=== PATIENT | male | born 1950 | race Caucasian/White ===

== ENCOUNTER 2019-08-15 22:26 | Observation (INO) ==
--- NOTE | 2019-08-15 22:49 | CT Scan Report ---
CT SCAN OF THE BRAIN WITHOUT IV CONTRAST CLINICAL HISTORY: Change in mental status. Memory loss. COMPARISON STUDY: No priors. TECHNIQUE: Unenhanced axial CT scan of the brain is performed from the vertex to the skull base. A d ose lowering technique was utilized adhering to the principles of ALARA. CT DOSE: 614.27 mGy.cm FINDINGS: Brain parenchyma: There is [id number] patchy subcortical and periventricular microangiopathic d isease. There is no hemorrhage, mass effect, or evidence of acute territorial ischemia by CT criteria . Carrasco-white matter differentiation is preserved. No extra-axial fluid collection is seen. Ventricles, sulci, cisterns: Normal in configuration. Intracranial vasculature: The visualized intracranial vasculature at the skull base is normal in appe arance. Calvarium: Unremarkable. Soft tissues: Calcification containing sebaceous cysts are noted in the scalp. Sinuses and mastoids: The visualized paranasal sinuses are clear. The mastoid air cells are well pneu matized. Orbits: The bony orbits are grossly intact. There are bilateral ocular lens implants. IMPRESSION: There is no hemorrhage, mass effect, or evidence of acute territorial ischemia by CT airam wong. ACT 112: Negative or not required by law. Electronically signed by: Farrukh Taylor M.D. 08/15/2019 10:48 PM
[2019-08-15] MEDS ORDERED: HydrALAZINE HCL 20 MG/ML VIAL IV STA (22:55)
[2019-08-15 23:08] LABS: iSTAT Creatinine 1.2 mg/dl (0.6-1.3); iSTAT Hemoglobin 15.6 g/dl (14.0-18.0); iSTAT Ionized Calcium 1.22 mmol/l (1.12-1.32); iSTAT Potassium 3.9 mEq/L (3.3-5.0)
--- NOTE | 2019-08-15 23:21 | Emergency Department Note ---
Entered by Cherie Osorio acting as a scribe for Farrukh Martin MD History of Present Illness General Chief complaint: Stroke Alert Stated complaint: MEMORY PROBLEMS Time Seen by Provider: 08/15/19 22:50 Source: patient, family () and other (ED nurses) History of Present Illness Onset (ago): hour(s) ( noticed sx at 8:30PM today) Location: head (stroke-like sx) Pain Consistency: + constant Maximum Pain Intensity: 0 Associated symptoms: + denies other symptoms (facial droop, speech issues, dizziness, recent cold sx or sickness), + diaphoresis (reported by ED nurses after CT today (head and back)) and + other (memory loss); no headaches and no weakness The patient is a 69 year old male with a history of HTN who presents to the Emergency Room with complaints of a possible stroke. The patient's reports that she noticed that the patient had loss of memory around 8:30PM (about 3 hours ago) and she states that he could not remember activities that he performed earlier in the day.. states that he was acting at baseline when he woke up this am--no weakness throughout the day, no facial droop, no speech issues, no dizziness. He does not have a history of stroke and never experienced similar symptoms in the past. The patient reports that he did not hit his head today or fall. He denies a current headache as well as recent cold symptoms or sickness. He states that he feels fine now. ED nurse also reports that the patient appeared to be more diaphoretic (face and back) after CT than when he arrived. The patient and his offer no further concerns at this time. Home Medications Home Medications Medication Instructions Recorded Confirmed Type lisinopril 20 mg PO DAILY 08/15/19 08/15/19 History Allergies Allergy/AdvReac Type Severity Reaction Status Date / Time No Known Allergies Allergy Unverified 08/15/19 22:55 Past Med/Surg History Medical History Hypertension Surgical History No pertinent past surgical history Social History Preferred Language: Ukrainian Feels Safe at Home: Yes Smoking Status: Former smoker Review of Systems See HPI for pertinent positives & negatives. and A total of 10 systems reviewed and were otherwise negative Physical Exam Vital Signs Vital Signs - 24 hr 08/15/19 22:32 08/15/19 22:52 08/15/19 23:00 Temperature 36.5 C 36.8 C Temperature Source Oral Oral Pulse Rate 82 81 Pulse Rate [Apical] 84 Pulse Rate from SpO2 Sensor 81 Pulse Rhythm Regular Pulse Rhythm [Apical] Regular Pulse Strength Normal Respiratory Rate 16 16 20 Respiratory Effort / Characteristics Non-Labored Non-Labored Spontaneous Respiratory Depth Normal Normal Respiratory Pattern Regular Regular Blood Pressure 196/100 H 146/95 H Blood Pressure [Left Arm] 214/114 H Blood Pressure Mean 132 112 Blood Pressure Mean [Left Arm] 147 Blood Pressure Position Sitting Pulse Oximetry 96 98 96 Oxygen Delivery Method Room Air Room Air Sepsis Recent Fever Within 48 Hours No Sepsis Action Taken by Nursing No Action Required 08/15/19 23:18 08/15/19 23:34 08/15/19 23:50 Temperature Temperature Source Pulse Rate Pulse Rate [Apical] 94 H 85 81 Pulse Rate from SpO2 Sensor Pulse Rhythm Pulse Rhythm [Apical] Regular Regular Regular Pulse Strength Respiratory Rate 16 16 18 Respiratory Effort / Characteristics Non-Labored Spontaneous Non-Labored Spontaneous Non-Labored Spontaneous Respiratory Depth Normal Normal Normal Respiratory Pattern Regular Regular Blood Pressure Blood Pressure [Left Arm] 153/107 H 144/88 H 158/85 H Blood Pressure Mean Blood Pressure Mean [Left Arm] 122 106 109 Blood Pressure Position Pulse Oximetry 98 100 100 Oxygen Delivery Method Room Air Room Air Room Air Sepsis Recent Fever Within 48 Hours Sepsis Action Taken by Nursing 08/16/19 00:04 08/16/19 00:28 08/16/19 00:40 Temperature Temperature Source Pulse Rate Pulse Rate [Apical] 81 85 84 Pulse Rate from SpO2 Sensor Pulse Rhythm Pulse Rhythm [Apical] Regular Regular Regular Pulse Strength Respiratory Rate 20 20 20 Respiratory Effort / Characteristics Non-Labored Spontaneous Non-Labored Spontaneous Non-Labored Spontaneous Respiratory Depth Normal Normal Normal Respiratory Pattern Regular Regular Agonal Blood Pressure Blood Pressure [Left Arm] 154/94 H 161/101 H 139/84 Blood Pressure Mean Blood Pressure Mean [Left Arm] 114 121 102 Blood Pressure Position Pulse Oximetry 97 97 96 Oxygen Delivery Method Room Air Room Air Room Air Sepsis Recent Fever Within 48 Hours Sepsis Action Taken by Nursing GENERAL: Patient is in no acute distress. HEENT: No acute trauma, normocephalic atraumatic, mucous membranes moist, no nasal congestion, no scleral icterus. NECK: No stridor, no adenopathy, no meningismus, trachea is midline. LUNGS: Clear to auscultation bilaterally, no wheeze, no rhonchi, breath sounds equal. HEART: Without murmurs gallops or rubs, regular rate and rhythm. ABDOMEN: Soft, nontender, bowel sounds positive, no hernias, no peritonitis. EXTREMITIES: No cyanosis or edema, full range of motion of all the joints without pain or difficulty, no signs for acute trauma. NEUROLOGIC: Awake and alert, no acute motor or sensory deficits, no focal weakness. No speech slur, no protonated drift, no cerebellar dysfunction. Patient seems to have no memory of the earlier part of today. SKIN: No rash, no jaundice, mild diaphoresis. Course Course 2244: Past medical records reviewed. The patient was evaluated in room A01. A complete history and physical exam was performed. 2253: I spoke to Dr. Loaiza [facility]. He will sign in on the case. 2257: I checked on the patient and updated him and his on the plan of care and that Dr. Loaiza is signing in. 2324: I re-checked the patient. Dr. Loaiza is finishing up his assessment and speaking to the patient and his about TGA. 2338: I spoke to Dr. Loaiza, he states that this is likely not a CVA but more likely TGA. No TPA at this time. He recommends a hospital stay, MRI, EEG, and dose of oral aspirin. 2342: The patient will be admitted Dr. Peñaloza, [facility] Hospitalist. The patient verbally expressed understanding and agreement of the treatment plan. The patient will be evaluated for further treatment. Administered Medications Discontinued Medications Aspirin (Aspirin) 324 mg PO NOW STA Stop: 08/15/19 23:43 Last Admin: 08/15/19 23:45 Dose: 324 mg Documented by: [id number] Hydralazine HCl (Hydralazine Hcl) 10 mg IV NOW STA Stop: 08/15/19 22:56 Last Admin: 08/15/19 22:57 Dose: 10 mg Documented by: [id number] Lisinopril (Zestril) Confirm Administered Dose 10 mg PO .[employer] ONE Stop: 08/16/19 00:12 Last Admin: 08/16/19 00:31 Dose: Not Given Documented by: [id number] Critical Care Time Critical Care Time: Yes Total Critical Care Time: 37 I have personally spent 37 minutes of critical care time in the direct management of this patient. This includes bedside care, interpretation of diagnostic studies, and testing, discussion with consultants, patient, and family members, and other required patient management activities. This 37 minutes is in excess of all separately billable procedures. Medical Decision Making Differential Diagnosis Differential diagnosis includes but is not limited to stroke, TGA, hypoglycemia, electrolyte imbalance, head trauma, dysrhythmia, DC, renal failure, drug or alcohol abuse. Medical Records Attestation: I reviewed the patient's medical records. Home Medications Current Medication List: was personally reviewed by me Laboratory Data Attestation: I reviewed the patient's lab results. Result diagrams: 08/15/19 22:51 08/15/19 22:51 Lab Results 08/15/19 08/15/19 08/15/19 Range/Units 22:48 22:51 22:51 WBC 6.57 (4.8-10.8) K/uL RBC 5.88 (4.7-6.1) M/uL Hgb 17.1 (14.0-18.0) g/dL POC Hgb (14.0-18.0) g/dl Hct 48.7 (42-52) % POC Hct (42-52) % MCV 82.8 (80-100) fL MCH 29.1 (25-34) pg MCHC 35.1 (32-36) g/dL RDW Std Deviation 39.4 (36.4-46.3) fL RDW Coeff of Reggie 13.0 (11.5-14.5) % Plt Count 153 (130-400) K/uL MPV 10.3 (7.4-10.4) fL Immature Gran % (Auto) 0.2 % Neut % (Auto) 49.2 % Lymph % (Auto) 40.5 % [place] % (Auto) 7.5 % Eos % (Auto) 2.4 % Baso % (Auto) 0.2 % Immature Gran # (Auto) 0.01 (0.00-0.02) K/uL Neut # (Auto) 3.24 (1.4-6.5) K/uL Lymph # (Auto) 2.66 (1.2-3.4) K/uL [place] # (Auto) 0.49 (0.11-0.59) K/uL Eos # (Auto) 0.16 (0-0.5) K/uL Baso # (Auto) 0.01 (0-0.2) K/uL PT 10.7 (9.0-12.0) Seconds INR 1.0 (0.9-1.1) APTT 24.8 (21.0-31.0) Seconds PTT Ratio 0.9 POC Sodium (135-144) mEq/L Sodium (136-145) mmol/L POC Potassium (3.3-5.0) mEq/L Potassium (3.5-5.1) mmol/L POC Chloride (101-112) mEq/L Chloride (98-107) mmol/L Carbon Dioxide (21-32) mmol/L POC Total CO2 (24-31) mEq/l Anion Gap (3-11) POC Anion Gap (16-25) mmol/L POC BUN (7-18) mg/dl BUN (7-18) mg/dl Creatinine (0.6-1.4) mg/dl POC Creatinine (0.6-1.3) mg/dl Est Cr Clr Drug Dosing ml/min Est GFR ( Amer) Est GFR (Non-Af Amer) BUN/Creatinine Ratio (10-20) Glucose (70-99) mg/dl POC Glucose 120 H (70-99) POC Glucose (other) (70-99) mg/dl Calcium (8.5-10.1) mg/dl POC Ioniz Calcium Shayna (1.12-1.32) mmol/l Magnesium (1.8-2.4) mg/dl Total Bilirubin (0.2-1) mg/dl AST (15-37) U/L ALT (12-78) U/L Alkaline Phosphatase (45-117) U/L Troponin I (0-0.045) ng/ml Total Protein (6.4-8.2) gm/dl Albumin (3.4-5.0) gm/dl Globulin (2.5-4.0) gm/dl Albumin/Globulin Ratio (0.9-2) TSH (0.300-4.500) uIu/ml Free T4 (0.8-1.6) ng/dl Urine Color Urine Appearance (Clear) Urine pH (4.5-7.5) Ur Specific [place] (1.000-1.030) Urine Protein (Negative) Urine Glucose (UA) (Negative) Urine Ketones (Negative) Urine Blood (Negative) Urine Nitrite (Negative) Urine Bilirubin (Negative) Urine Urobilinogen (Negative) Ur Leukocyte Esterase (Negative) Urine WBC (Auto) (0-5) /hpf Urine RBC (Auto) (0-4) /hpf U Hyaline Cast (Auto) (0-5) /lpf U Epithel Cells (Auto) (0-5) /lpf Urine Bacteria (Auto) (Negative) 08/15/19 08/15/19 08/16/19 Range/Units 22:51 22:54 00:40 WBC (4.8-10.8) K/uL RBC (4.7-6.1) M/uL Hgb (14.0-18.0) g/dL POC Hgb 15.6 (14.0-18.0) g/dl Hct (42-52) % POC Hct 46 (42-52) % MCV (80-100) fL MCH (25-34) pg MCHC (32-36) g/dL RDW Std Deviation (36.4-46.3) fL RDW Coeff of Reggie (11.5-14.5) % Plt Count (130-400) K/uL MPV (7.4-10.4) fL Immature Gran % (Auto) % Neut % (Auto) % Lymph % (Auto) % [place] % (Auto) % Eos % (Auto) % Baso % (Auto) % Immature Gran # (Auto) (0.00-0.02) K/uL Neut # (Auto) (1.4-6.5) K/uL Lymph # (Auto) (1.2-3.4) K/uL [place] # (Auto) (0.11-0.59) K/uL Eos # (Auto) (0-0.5) K/uL Baso # (Auto) (0-0.2) K/uL PT (9.0-12.0) Seconds INR (0.9-1.1) APTT (21.0-31.0) Seconds PTT Ratio POC Sodium 139 (135-144) mEq/L Sodium 137 (136-145) mmol/L POC Potassium 3.9 (3.3-5.0) mEq/L Potassium 3.8 (3.5-5.1) mmol/L POC Chloride 104 (101-112) mEq/L Chloride 106 (98-107) mmol/L Carbon Dioxide 27 (21-32) mmol/L POC Total CO2 25 (24-31) mEq/l Anion Gap 4.0 (3-11) POC Anion Gap 15.0 L (16-25) mmol/L POC BUN 19 H (7-18) mg/dl BUN 17 (7-18) mg/dl Creatinine 1.29 (0.6-1.4) mg/dl POC Creatinine 1.2 (0.6-1.3) mg/dl Est Cr Clr Drug Dosing 82.2 ml/min Est GFR ( Amer) 66.1 Est GFR (Non-Af Amer) 57.0 BUN/Creatinine Ratio 13.6 (10-20) Glucose 117 H (70-99) mg/dl POC Glucose (70-99) POC Glucose (other) 122 H (70-99) mg/dl Calcium 9.3 (8.5-10.1) mg/dl POC Ioniz Calcium Shayna 1.22 (1.12-1.32) mmol/l Magnesium 1.9 (1.8-2.4) mg/dl Total Bilirubin 0.5 (0.2-1) mg/dl AST 34 (15-37) U/L ALT 49 (12-78) U/L Alkaline Phosphatase 78 (45-117) U/L Troponin I < 0.015 (0-0.045) ng/ml Total Protein 8.5 H (6.4-8.2) gm/dl Albumin 4.4 (3.4-5.0) gm/dl Globulin 4.1 H (2.5-4.0) gm/dl Albumin/Globulin Ratio 1.1 (0.9-2) TSH 9.330 H (0.300-4.500) uIu/ml Free T4 0.96 (0.8-1.6) ng/dl Urine Color Yellow Urine Appearance Clear (Clear) Urine pH 5.5 (4.5-7.5) Ur Specific [place] 1.021 (1.000-1.030) Urine Protein 1+ H (Negative) Urine Glucose (UA) Negative (Negative) Urine Ketones Negative (Negative) Urine Blood Negative (Negative) Urine Nitrite Negative (Negative) Urine Bilirubin Negative (Negative) Urine Urobilinogen Negative (Negative) Ur Leukocyte Esterase Negative (Negative) Urine WBC (Auto) 0 (0-5) /hpf Urine RBC (Auto) 0-4 (0-4) /hpf U Hyaline Cast (Auto) 0 (0-5) /lpf U Epithel Cells (Auto) 0-5 (0-5) /lpf Urine Bacteria (Auto) Negative (Negative) Imaging Data Radiologist's Impression: Radiology results as stated below per my review and the radiologist's interpretation: CT SCAN OF THE BRAIN WITHOUT IV CONTRAST CLINICAL HISTORY: Change in mental status. Memory loss. COMPARISON STUDY: No priors. TECHNIQUE: Unenhanced axial CT scan of the brain is performed from the vertex to the skull base. A dose lowering technique was utilized adhering to the principles of ALARA. CT DOSE: 614.27 mGy.cm FINDINGS: Brain parenchyma: There is [id number] patchy subcortical and periventricular microangiopathic disease. There is no hemorrhage, mass effect, or evidence of acute territorial ischemia by CT criteria. Carrasco-white matter differentiation is preserved. No extra-axial fluid collection is seen. Ventricles, sulci, cisterns: Normal in configuration. Intracranial vasculature: The visualized intracranial vasculature at the skull base is normal in appearance. Calvarium: Unremarkable. Soft tissues: Calcification containing sebaceous cysts are noted in the scalp. Sinuses and mastoids: The visualized paranasal sinuses are clear. The mastoid air cells are well pneumatized. Orbits: The bony orbits are grossly intact. There are bilateral ocular lens implants. IMPRESSION: There is no hemorrhage, mass effect, or evidence of acute territorial ischemia by CT criteria. ACT 112: Negative or not required by law. Electronically signed by: Farrukh Taylor M.D. 08/15/2019 10:48 PM ECG Data Attestation: I personally reviewed and interpreted this ECG as follows: Indication: + other (stroke alert) Rate (beats per minute): 80 Rhythm: + normal sinus ECG ST segments: no ST elevation ECG Findings: + Other (QTc is 433); no PVCs Blood Pressure Blood Pressure Findings: Elevated blood pressure Blood Pressure Disposition: further management by hospitalist MDM Narrative There is no leukocytosis or concerning anemia. No coagulopathy. No concerning electrolyte abnormality or kidney failure. No liver enzyme elevation. EKG shows a normal sinus rhythm, no acute ischemia. Cardiac enzyme testing x1 is not consistent with acute cardiac injury. Urinalysis did not show evidence for infection. Brain CT shows no acute bleed or mass-effect. On exam, the patient had no real memory of today's events. He had no focal neurologic findings, no speech slur. He had no facial droop. The patient was aggressively managed given his complaints, a stroke alert was called. I did speak with the [place] neurologist after my history and exam. The patient's blood pressure was quite high. He was given IV hydralazine with a nice response to his blood pressure. The patient was assessed by the on-call [place] neurologist via telemedicine. tPA was not felt warranted. The patient was felt likely to be suffering from a hypertensive emergency versus transient global amnesia. The risk of TPA for this presentation was felt too great. I talked the patient, I talked to the patient's . They are aware of all the findings. Hospitalization is warranted for further work-up. MRI, EEG were r ecommended by the [place] neurologist. The patient was given oral aspirin as he had passed his dysphagia screen. The aspirin was felt to be stroke protective. The patient will be hospitalized for further work-up and care. I did speak with case management. The on-call hospitalist was consulted. Impression & Plan Stroke-like symptom, Memory loss, Hypertension, uncontrolled, TGA (transient global amnesia) Discharge Plan Visit Data Chief Complaint: Stroke Alert Stated Complaint: MEMORY PROBLEMS Other Complaint: Confusion ED Provider: Farrukh Martin Discharge Problem: Stroke-like symptom, Memory loss, Hypertension, uncontrolled, TGA (transient global amnesia) Patient Disposition: Being Evaluated by Hospitalist Forms Stand Alone Forms: My [facility] Prescriptions Prescriptions: No Action lisinopril 20 mg Tablet 20 mg PO DAILY RF: 0 Referrals Referrals: Gera Pastor [Primary Care Provider] - The juliusiblindsay's documentation has been prepared under my direction and personally reviewed by me in its entirety. I confirm that the note above accurately reflects all work, treatment, procedures, and medical decision making performed by me.
[2019-08-15 23:23] LABS: Basophils # (auto) 0.01 K/uL (0-0.2); Basophils % (auto) 0.2 %; Eosinophils # (auto) 0.16 K/uL (0-0.5); Eosinophils % (auto) 2.4 %; Hematocrit (blood only) 48.7 % (42-52); Hemoglobin 17.1 g/dL (14.0-18.0); Immature Granulocytes # (auto) 0.01 K/uL (0.00-0.02); Immature Granulocytes % (auto) 0.2 %; Lymphocytes # (auto) 2.66 K/uL (1.2-3.4); Lymphocytes % (auto) 40.5 %; Mean Corpuscular Hemoglobin 29.1 pg (25-34); Mean Corpuscular Hgb Conc 35.1 g/dL (32-36); Mean Corpuscular Volume 82.8 fL (80-100); Mean Platelet Volume 10.3 fL (7.4-10.4); Monocytes # (auto) 0.49 K/uL (0.11-0.59); Monocytes % (auto) 7.5 %; Neutrophils # (auto) 3.24 K/uL (1.4-6.5); Neutrophils % (auto) 49.2 %; Platelet Count 153 K/uL (130-400); RDW Standard Deviation 39.4 fL (36.4-46.3); Red Blood Count 5.88 M/uL (4.7-6.1); White Blood Count 6.57 K/uL (4.8-10.8)
[2019-08-15 23:35] LABS: Alanine Aminotransferase 49 U/L (12-78); Albumin Level 4.4 gm/dl (3.4-5.0); Aspartate Aminotransferase 34 U/L (15-37); BUN Creatinine Ratio 13.6 (10-20); Blood Urea Nitrogen 17 mg/dl (7-18); Calcium 9.3 mg/dl (8.5-10.1); Carbon Dioxide 27 mmol/L (21-32); Chloride 106 mmol/L (98-107); Creatinine Clr Calc Pharmacy 82.2 ml/min; Est GFR (African American) 66.1; Glucose 117 mg/dl (70-99); Magnesium 1.9 mg/dl (1.8-2.4); Partial Thromboplastin Ratio 0.9; Partial Thromboplastin Time 24.8 Seconds (21.0-31.0); Potassium 3.8 mmol/L (3.5-5.1); Prothrombin Time 10.7 Seconds (9.0-12.0); Sodium 137 mmol/L (136-145)
[2019-08-15 23:40] LABS: Albumin Globulin Ratio 1.1 (0.9-2); Alkaline Phosphatase 78 U/L (45-117); Bilirubin,Total 0.5 mg/dl (0.2-1); Globulin 4.1 gm/dl (2.5-4.0); Total Protein 8.5 gm/dl (6.4-8.2); Troponin I < 0.015 ng/ml (0-0.045)
[2019-08-15] MEDS ORDERED: ASPIRIN CHEW 324 MG PO STA (23:42)
[2019-08-15] MEDS ORDERED: lisinopriL 10 MG TAB PO ONE (23:53)
[2019-08-16] MEDS: lisinopriL 5 MG TAB PO ONE ×2 (00:12→00:31)
[2019-08-16] MEDS ORDERED: lisinopriL 10 MG TAB PO STA (00:28)
--- NOTE | 2019-08-16 00:29 | History & Physical Report ---
Date of Service August 16, 2019 Assessment & Plan (1) TGA (transient global amnesia): Memory of recent events somewhat improving at time of exam Rule out TIA, atypical seizures HTN, elevated Unknown baseline control Rule out DARCY Hyperglycemia rule out DM Leg cramps rule out DVT OBS Medical telemetry Neurochecks MRI/MRA brain, EEG for work-up of transient global amnesia as per [facility] teleneurologist recommendation Neurology consult RE transient global amnesia Aspirin for stroke prevention until stroke ruled out titrate BP medication to optimize BP control as per [facility] neurologist recommendation, add Norvasc if still uncontrolled Check hemoglobin A1c LE venous ultrasound ro DVT DVT prophylaxis. Lovenox subcu Full code Patient's requesting updates from providers. Ms. Sarahi Silva, contact #[phone]. History of Present Illness Chief Complaint: Cannot remember things Primary Care Provider: Gera Pastor History obtained from patient, family, and records. Patient is a fair historian. Medical history significant for hypertension, past tobacco use. Patient was at a nighttime gathering with friends when his noticed memory impairment. Patient could not remember details regarding recent [employer] gift to a grandson, recent visit by family members for the holidays. No headache, no chest pain, no S OB. No prior episodes. No unusual stress at home. No witnessed seizures, tongue biting episodes. No prior episodes. Patient does not take his blood pressure at home. Patient's asked witnessed apneic episodes during sleep. Stroke alert called upon arrival at the ER. 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 Allergies Allergy/AdvReac Type Severity Reaction Status Date / Time No Known Allergies Allergy Unverified 08/15/19 22:55 Home Medications Home Medications Medication Instructions Recorded Confirmed Type lisinopril 20 mg PO DAILY 08/15/19 08/15/19 History Past Med/Surg History Medical History Hypertension Surgical History No pertinent past surgical history Social History Preferred Language: Surinamese Communication Ability: Effective Skip 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 Required: No Beliefs That Will Affect Care: None Current Living Situation: Spouse Other Information That Helps Us Care for You: No Feels Safe at Home: Yes Safety Concerns: Feels Safe At This Time Smoking Status: Never smoker Hx Alcohol Use: Yes Alcohol type: beer Hx Substance Use: No Review of Systems Review of Systems: As per HPI, all 10 systems reviewed, bilateral leg cramps, all other ROS negative Physical Exam Physical Exam: GENERAL: Comfortable, slightly anxious, pleasant, obese, no respiratory distress SKIN: Normal color, warm HEENT: Partial alopecia, [place] palpebral conjunctivae, no ptosis, dry buccal mucosa NECK : Supple, short neck, no tenderness CHEST : CTA, no tenderness HEART : RRR, no obvious murmurs ABDOMEN: Some distention, nontender EXTREMITIES : Minimal LE swelling, no LE tenderness, no other conspicuous deformities noted NEUROLOGIC : Coherent, no facial asymmetry, no other gross focality Results & Data Vital Signs (Past 12 Hours) Vital Signs Temp Pulse Pulse Resp BP BP Pulse Ox 08/16/19 00:28 85 20 161/101 H 97 08/16/19 00:04 81 20 154/94 H 97 08/15/19 23:50 81 18 158/85 H 100 08/15/19 23:34 85 16 144/88 H 100 08/15/19 23:18 94 H 16 153/107 H 98 08/15/19 23:00 81 20 146/95 H 96 08/15/19 22:52 36.8 C 84 16 214/114 H 98 08/15/19 22:32 36.5 C 82 16 196/100 H 96 Laboratory Results Laboratory Results WBC 6.57 K/uL (4.8-10.8) 08/15/19 22:51 RBC 5.88 M/uL (4.7-6.1) 08/15/19 22:51 Hgb 17.1 g/dL (14.0-18.0) 08/15/19 22:51 POC Hgb 15.6 g/dl (14.0-18.0) 08/15/19 22:54 Hct 48.7 % (42-52) 08/15/19 22:51 POC Hct 46 % (42-52) 08/15/19 22:54 MCV 82.8 fL (80-100) 08/15/19 22:51 MCH 29.1 pg (25-34) 08/15/19 22:51 MCHC 35.1 g/dL (32-36) 08/15/19 22:51 RDW Std Deviation 39.4 fL (36.4-46.3) 08/15/19 22:51 RDW Coeff of Reggie 13.0 % (11.5-14.5) 08/15/19 22:51 Plt Count 153 K/uL (130-400) 08/15/19 22:51 MPV 10.3 fL (7.4-10.4) 08/15/19 22:51 Immature Gran % (Auto) 0.2 % 08/15/19 22:51 Neut % (Auto) 49.2 % 08/15/19 22:51 Lymph % (Auto) 40.5 % 08/15/19 22:51 [place] % (Auto) 7.5 % 08/15/19 22:51 Eos % (Auto) 2.4 % 08/15/19 22:51 Baso % (Auto) 0.2 % 08/15/19 22:51 Immature Gran # (Auto) 0.01 K/uL (0.00-0.02) 08/15/19 22:51 Neut # (Auto) 3.24 K/uL (1.4-6.5) 08/15/19 22:51 Lymph # (Auto) 2.66 K/uL (1.2-3.4) 08/15/19 22:51 [place] # (Auto) 0.49 K/uL (0.11-0.59) 08/15/19 22:51 Eos # (Auto) 0.16 K/uL (0-0.5) 08/15/19 22:51 Baso # (Auto) 0.01 K/uL (0-0.2) 08/15/19 22:51 PT 10.7 Seconds (9.0-12.0) 08/15/19 22:51 INR 1.0 (0.9-1.1) 08/15/19 22:51 APTT 24.8 Seconds (21.0-31.0) 08/15/19 22:51 PTT Ratio 0.9 08/15/19 22:51 POC Sodium 139 mEq/L (135-144) 08/15/19 22:54 Sodium 137 mmol/L (136-145) 08/15/19 22:51 POC Potassium 3.9 mEq/L (3.3-5.0) 08/15/19 22:54 Potassium 3.8 mmol/L (3.5-5.1) 08/15/19 22:51 POC Chloride 104 mEq/L (101-112) 08/15/19 22:54 Chloride 106 mmol/L (98-107) 08/15/19 22:51 Carbon Dioxide 27 mmol/L (21-32) 08/15/19 22:51 POC Total CO2 25 mEq/l (24-31) 08/15/19 22:54 Anion Gap 4.0 (3-11) 08/15/19 22:51 POC Anion Gap 15.0 mmol/L (16-25) L 08/15/19 22:54 POC BUN 19 mg/dl (7-18) H 08/15/19 22:54 BUN 17 mg/dl (7-18) 08/15/19 22:51 Creatinine 1.29 mg/dl (0.6-1.4) 08/15/19 22:51 POC Creatinine 1.2 mg/dl (0.6-1.3) 08/15/19 22:54 Est Cr Clr Drug Dosing 82.2 ml/min 08/15/19 22:51 Est GFR ( Amer) 66.1 08/15/19 22:51 Est GFR (Non-Af Amer) 57.0 08/15/19 22:51 BUN/Creatinine Ratio 13.6 (10-20) 08/15/19 22:51 Glucose 117 mg/dl (70-99) H 08/15/19 22:51 POC Glucose 120 (70-99) H 08/15/19 22:48 POC Glucose (other) 122 mg/dl (70-99) H 08/15/19 22:54 Calcium 9.3 mg/dl (8.5-10.1) 08/15/19 22:51 POC Ioniz Calcium Shayna 1.22 mmol/l (1.12-1.32) 08/15/19 22:54 Magnesium 1.9 mg/dl (1.8-2.4) 08/15/19 22:51 Total Bilirubin 0.5 mg/dl (0.2-1) 08/15/19 22:51 AST 34 U/L (15-37) 08/15/19 22:51 ALT 49 U/L (12-78) 08/15/19 22:51 Alkaline Phosphatase 78 U/L (45-117) 08/15/19 22:51 Troponin I < 0.015 ng/ml (0-0.045) 08/15/19 22:51 Total Protein 8.5 gm/dl (6.4-8.2) H 08/15/19 22:51 Albumin 4.4 gm/dl (3.4-5.0) 08/15/19 22:51 Globulin 4.1 gm/dl (2.5-4.0) H 08/15/19 22:51 Albumin/Globulin Ratio 1.1 (0.9-2) 08/15/19 22:51 TSH 9.330 uIu/ml (0.300-4.500) H 08/15/19 22:[address] head: There is no hemorrhage, mass effect, or evidence of acute territorial ischemia by CT criteria. EKG as per my interpretation:Rate 80, NSR, normal axis, no ischemia
[2019-08-16 00:30] LABS: T4 Free Thyroxine 0.96 ng/dl (0.8-1.6)
[2019-08-16 00:52] LABS: Appearance Urine Clear (Clear); Bacteria Urine Automated Negative (Negative); Bilirubin Urine Negative (Negative); Blood Urine Negative (Negative); Cast Urine Automated 0 /lpf (0-5); Color Urine Yellow; Epithelial Cell Urine Auto 0-5 /lpf (0-5); Glucose Urine UA Negative (Negative); Ketones Urine Negative (Negative); Leukocyte Esterase Urine Negative (Negative); Nitrite Urine Negative (Negative); Protein Urine 1+ (Negative); RBC Urine Automated 0-4 /hpf (0-4); Specific Gravity Urine 1.021 (1.000-1.030); Urobilinogen Urine Negative (Negative); WBC Urine Automated 0 /hpf (0-5); pH Urine 5.5 (4.5-7.5)
[2019-08-16 01:07] LABS: Amphetamines+Metham, Urine Neg (Neg); Barbiturates, Urine Neg (Neg); Benzodiazepine, Urine Neg (Neg); Cocaine, Urine Neg (Neg); MDMA (Ecstacy), Urine Neg (Neg); Methadone, Urine Neg (Neg); Opiate, Urine Neg (Neg); Phencyclidine, Urine Neg (Neg)
[2019-08-16] MEDS ORDERED: ACETAMINOPHEN 325 MG TAB PO PRN (01:30)
[2019-08-16] MEDS ORDERED: NITROGLYCERIN SL 0.4 MG/TAB TAB SL PRN (01:30)
[2019-08-16] MEDS ORDERED: OXYCODONE HCL IR 5 MG TAB (IMMEDIATE RELEASE) PO PRN (01:30)
[2019-08-16] MEDS ORDERED: PROMETHAZINE HCL 12.5 MG in SODIUM CHLORIDE 0.9% 50 ML IV PRN (01:30)
[2019-08-16] MEDS ORDERED: LACTATED RINGER'S 1,000 ML IV ONE (01:30)
[2019-08-16 02:17] LABS: Lyme Ab IgG w/WB Rflx Negative (Negative); Lyme Ab IgM w/WB Rflx Negative (Negative)
[2019-08-16 06:07] LABS: Estimated Average Glucose 140 mg/dl; Hemoglobin A1C 6.5 % (4.5-5.6)
[2019-08-16 06:18] LABS: Basophils # (auto) 0.02 K/uL (0-0.2); Basophils % (auto) 0.3 %; Eosinophils # (auto) 0.09 K/uL (0-0.5); Eosinophils % (auto) 1.2 %; Hemoglobin 15.8 g/dL (14.0-18.0); Immature Granulocytes # (auto) 0.01 K/uL (0.00-0.02); Immature Granulocytes % (auto) 0.1 %; Lymphocytes % (auto) 28.6 %; Mean Corpuscular Hemoglobin 29.2 pg (25-34); Mean Corpuscular Hgb Conc 35.1 g/dL (32-36); Monocytes # (auto) 0.62 K/uL (0.11-0.59); Monocytes % (auto) 8.1 %; Neutrophils # (auto) 4.76 K/uL (1.4-6.5); Neutrophils % (auto) 61.7 %; Platelet Count 152 K/uL (130-400); RDW Coefficient of Variation 13.2 % (11.5-14.5); RDW Standard Deviation 39.2 fL (36.4-46.3); Red Blood Count 5.42 M/uL (4.7-6.1)
--- NOTE | 2019-08-16 06:34 | Ultrasound Report ---
BILATERAL LOWER EXTREMITY VENOUS DOPPLER HISTORY: Acute bilateral lower extremity pain leg cramps COMPARISON STUDY: None. FINDINGS: There is normal compressibility, flow, and augmentation within the bilateral lower extremit y deep venous systems. IMPRESSION: No DVT within the right or left lower extremity. ACT 112: Negative or not required by law. Electronically signed by: Wilder Givens M.D. 08/16/2019 6:32 AM
[2019-08-16 06:46] LABS: BUN Creatinine Ratio 16.2 (10-20); Calcium 9.1 mg/dl (8.5-10.1); Creatinine Clr Calc Pharmacy 108.6 ml/min; Est GFR (African American) 93.2; Est GFR (Non-African American) 80.5; Potassium 3.7 mmol/L (3.5-5.1)
--- NOTE | 2019-08-16 07:11 | Magnetic Resonance Report ---
MR angio head wo con HISTORY: 69 years-old Male transient amnesia acutely altered mental status COMPARISON: MRI brain of same day, CT head 08/15/2019 TECHNIQUE: MRA of the head was obtained without the use of IV contrast utilizing 3-D [id number] equencing with MIP reformats. All measurements were obtained according to NASCET criteria. FINDINGS: The imaged bilateral internal carotid arteries appear patent and unremarkable. Bilateral middle and a nterior cerebral arteries and anterior communicating artery appear normal. Diminished flow related si gnal of the visualized left vertebral artery, likely developmental. The right vertebral artery, basil ar and posterior cerebral arteries appear normal and patent. origin of the right posterior cere bral artery. There is no aneurysm, dissection, high-grade stenosis or proximal branch occlusion ident ified. Nonspecific ill-defined increased signal noted within the cerebellum surrounding the fourth ve ntricle, possibly on a artifactual basis. A 1 mm vascular pedicle is noted involving the left P1 segm ent on image 121 series 8. IMPRESSION: Unremarkable MRA without aneurysm, dissection, high-grade stenosis or proximal branch occ lusion identified. ACT 112: Negative or not required by law. The above report was generated using voice recognition software. It may contain grammatical, syntax o r spelling errors. Electronically signed by: Wilder Givens M.D. 08/16/2019 7:09 AM
--- NOTE | 2019-08-16 07:13 | Magnetic Resonance Report ---
MRI OF THE BRAIN WITHOUT CONTRAST CLINICAL HISTORY: transient amnesia COMPARISON STUDY: Head CT August 15, 2019. TECHNIQUE: Utilizing a 1.5 Ruthann magnet and dedicated coil, multiplanar, multiecho imaging of the bra in was performed without IV contrast. FINDINGS: There are no foci of restricted diffusion to suggest acute infarct. No acute intracranial h emorrhage, midline shift or mass effect is present. Brain volume is normal for age. Numerous white ma tter T2 hyperintense foci suggest moderate small vessel disease. No intracranial masses identified on this unenhanced examination. The ventricular system is normal. The basilar cisterns are patent. Ther e are no extra-axial collections. Flow-voids for the major intracranial vessels are present. Multiple scalp lesions likely reflect sebaceous cysts. Calvarial signal is normal. IMPRESSION: 1. No acute intracranial findings. 2. Numerous white matter T2 hyperintense foci suggestive of small vessel disease. ACT 112: Negative or not required by law. Electronically signed by: Karl Nicolas M.D. 08/16/2019 7:12 AM
[2019-08-16] MEDS ORDERED: ENOXAPARIN INJ 40 MG/0.4 ML SYR SQ SCH (09:00)
[2019-08-16] MEDS ORDERED: ASPIRIN 81 MG ECTAB PO SCH (09:00)
[2019-08-16] MEDS ORDERED: ATORVASTATIN 20 MG TAB PO SCH (14:00)
--- NOTE | 2019-08-16 14:26 | Neurology Consultation ---
Date of Consultation August 16, 2019 Assessment & Plan (1) TGA (transient global amnesia): 1. EEG preliminary read- normal 2. MRI no acute finding 3. MRA- no acute abnormalities- needs carotid doppler -ordered 4. PT/OT for discharge needs appears to be none 5. add aspirin 81 mg to medications 6. needs to establish with PCP for follow up on medical management 7. healthy lifestyle discussed 8. optimize HTN , DM, HLD LDL <70 return to neurology if PCP feels there is a need in the future. (2) Hypertension, uncontrolled: follow up with PCP for further medical management (3) Memory loss: 1. as above (4) Stroke-like symptom: Supervising Physician Co-Signing Physician Notes I have seen and discussed above patient with Dr Richmond Perez, neurology I have interviewed and examined this man and discussed the above findings with Urmila Urias PA-C in addition to reviewing his imaging studies, lab results and his EEG and pleased to report that the history is certainly consistent with transient global amnesia, this was probably a vascular event even though we see nothing on MRI and work-up is complete short of performance of a duplex of the carotids to be sure there is no evidence for atheromatous changes or significant stenoses but I hear no carotid bruits and find nothing focal on examination and certainly in light of his new onset diabetes find no evidence for a peripheral neuropathy He is going to need to follow-up with his primary care physician and have his vascular risk factors closely managed and should take him single baby aspirin tablet a day which his is been trying to convince him to do for a number of months to years and now I think he will be willing to comply He does have a history of some migraine-like headaches but never with aura and while this current event could have been a migraine I think we have to really considered a transient ischemic affair based on his vascular risk factors and treated accordingly I do not think he needs to be seen by neurology on a regular basis. His primary care group is with the [facility] and they may wish 1 of their neurologist to assume management in future if they feel neurologic care is required He is going to be discharged today unless of course the carotid ultrasound shows significant pathology that might require vascular surgery but for now that the echocardiogram the intracranial circulation and the MRI and EEG are all unremarkable Richmond Perez MD History of Present Illness Reason for Consultation: transient global amnesia Requesting Physician: Rush Barrett MD Attending Physician: Rush Barrett MD History of Present Illness Omari is a 69 year old male with PMH HTN, obesity who presented to the ED with a possible stroke. notice he had a memory loss that started about 10a and lasted til about 7p. 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 He does not remember who he was working with but does remember being in the garage. He went into the house and had their typical New Years sauerkraut and pork but does not remember eating it. His observed no weakness, slurred speech, falls. He did continue to repeat the same questions over and over again. He did remember coming to the hospital but nothing before that time. states he does not have a PCP and is not followed for his cholestrol or other health issues. He is a past smoker but has not smoked for years. no DM in the family. denies CP, SOB, abdominal pain, one sided weakness, numbness tingling, N, V, vision changes, headache, swallowing issues slurred speech. Allergies Allergy/AdvReac Type Severity Reaction Status Date / Time No Known Allergies Allergy Unverified 08/15/19 22:55 Home Medications Home Medications Medication Instructions Recorded Confirmed Type lisinopril 20 mg PO DAILY 08/15/19 08/15/19 History Patient History Medical History Hypertension Surgical History No pertinent past surgical history Social History Preferred Language: Danish Communication Ability: Effective Patient Support Associate Required: No Beliefs That Will Affect Care: None Current Living Situation: Spouse Other Information That Helps Us Care for You: No Feels Safe at Home: Yes Safety Concerns: Feels Safe At This Time Smoking Status: Never smoker Hx Alcohol Use: Yes Alcohol type: beer Hx Substance Use: No Physical Exam Physical Exam: Physical Exam: Constitutional: appearance over nourished, healthy Ears, Nose, Mouth and Throat: mucous membranes moist, no injection and skin normal, eyes normal Cardiovascular: normal S-1 and S-2 and regular rate and rhythm Respiratory: clear to auscultation (CTA) and no rales, rhonchi or wheeze Musculoskeletal: no peripheral edema and good distal pulses Skin: no stigmata of neurocutaneous disease noted and normal and intact Eyes: extraocular muscles intact (EOMI) and pupils equal, round and reactive to light (PERRL) NEUROLOGIC EXAMINATION: Mental status: Alert and interactive Oriented to full date and location Oriented to person Speech fluent with no evidence of aphasia Cranial Nerves smile eye brow raise symmetric Reflexes: Deep tendon reflexes were symmetrical and graded 2/5. down going toes Sensory: light cool touch intact Coordination: Romberg absent Gait/Stance: Posture normal. sitting up in bed Motor: Negative for pronator drift of out stretched arms with eyes closed. Strength: hand hand packer, biceps triceps 5/5 bilaterally hip flex patellar plantar flex ext 5/5 bilaterally Results & Data Vital Signs (Past 12 Hours) Vital Signs Temp Pulse Resp BP Pulse Ox 08/16/19 11:38 36.7 C 98 H 18 148/89 H 93 08/16/19 08:11 36.8 C 75 20 143/82 H 94 08/16/19 03:45 36.9 C 81 17 131/82 95 Laboratory Results Abnormal lab results 08/15/19 08/15/19 08/15/19 Range/Units 22:48 22:51 22:51 [place] # (Auto) (0.11-0.59) K/uL POC Anion Gap (16-25) mmol/L POC BUN (7-18) mg/dl Glucose 117 H (70-99) mg/dl POC Glucose 120 H (70-99) POC Glucose (other) (70-99) mg/dl Hemoglobin A1c 6.5 H (4.5-5.6) % Total Protein 8.5 H (6.4-8.2) gm/dl Globulin 4.1 H (2.5-4.0) gm/dl Cholesterol (0-200) mg/dl TSH 9.330 H (0.300-4.500) uIu/ml Urine Protein (Negative) 08/15/19 08/16/19 08/16/19 Range/Units 22:54 00:40 05:36 [place] # (Auto) 0.62 H (0.11-0.59) K/uL POC Anion Gap 15.0 L (16-25) mmol/L POC BUN 19 H (7-18) mg/dl Glucose (70-99) mg/dl POC Glucose (70-99) POC Glucose (other) 122 H (70-99) mg/dl Hemoglobin A1c (4.5-5.6) % Total Protein (6.4-8.2) gm/dl Globulin (2.5-4.0) gm/dl Cholesterol (0-200) mg/dl TSH (0.300-4.500) uIu/ml Urine Protein 1+ H (Negative) 08/16/19 Range/Units 05:36 [place] # (Auto) (0.11-0.59) K/uL POC Anion Gap (16-25) mmol/L POC BUN (7-18) mg/dl Glucose 125 H (70-99) mg/dl POC Glucose (70-99) POC Glucose (other) (70-99) mg/dl Hemoglobin A1c (4.5-5.6) % Total Protein (6.4-8.2) gm/dl Globulin (2.5-4.0) gm/dl Cholesterol 206 H (0-200) mg/dl TSH (0.300-4.500) uIu/ml Urine Protein (Negative) Diagnostic Findings MRA head-Unremarkable MRA without aneurysm, dissection, high-grade stenosis or proximal branch occlusion identified. MRI brain- No acute intracranial findings. Numerous white matter T2 hyperinte nse foci suggestive of small vessel disease. venous doppler- No DVT within the right or left lower extremity. CT head-There is no hemorrhage, mass effect, or evidence of acute territorial ischemia by CT criteria. EEG- preliminary read normal
--- NOTE | 2019-08-16 14:58 | Electroencephalogram ---
EEG Procedure Note Date of Service August 16, 2019 Start / End Times Start Time: 658 End Time: 718 Referring Physician Richmond Perez MD History Transient global amnesia question seizures Home Medication List Home Medications Medication Instructions Recorded Confirmed Type lisinopril 20 mg PO DAILY 08/15/19 08/15/19 History Inpatient Medication List Aspirin (Ecotrin Ectab) [address] [facility] Stop: 09/15/19 08:59 Last Admin: 08/16/19 09:10 Dose: 81 mg Documented by: [id number] Atorvastatin Calcium (Lipitor) [address] [facility] Stop: 09/15/19 13:59 Last Admin: 08/16/19 14:01 Dose: 20 mg Documented by: [id number] Enoxaparin Sodium (Lovenox) [address] [facility] Stop: 09/15/19 08:59 Last Admin: 08/16/19 09:25 Dose: Not Given Documented by: [id number] Lactated Ringer's (Lr) 1,000 mls @ 40 mls/hr IV .Q24H ONE Stop: 08/17/19 01:29 Last Admin: 08/16/19 01:35 Dose: 40 mls/hr Documented by: [id number] Discontinued Medications Aspirin (Aspirin) 324 mg PO NOW STA Stop: 08/15/19 23:43 Last Admin: 08/15/19 23:45 Dose: 324 mg Documented by: [id number] Hydralazine HCl (Hydralazine Hcl) 10 mg IV NOW STA Stop: 08/15/19 22:56 Last Admin: 08/15/19 22:57 Dose: 10 mg Documented by: [id number] Lisinopril (Zestril) Confirm Administered Dose 10 mg PO .STK-MED ONE Stop: 08/16/19 00:12 Last Admin: 08/16/19 00:31 Dose: Not Given Documented by: [id number] Lisinopril (Zestril) 20 mg PO NOW STA Stop: 08/16/19 00:29 Last Admin: 08/16/19 01:05 Dose: 20 mg Documented by: [id number] Description This is a 21 electrode EEG with a single channel dedicated to limited EKG. The electrodes were placed in accordance with the International 10-20 system. This EEG was obtained as a bedside recording is of excellent technical quality. Photic stimulation was performed. Video analysis patient movement and behavior was obtained. During wakefulness there is evidence for low amplitude background rhythm in the alpha range which is bilaterally symmetrical, maximum posterior head regions, is of up to 10 Hz maximum frequency and is of up to 20 to 30 V and maximum amplitude. Bilaterally symmetrical centrally maximal modest amplitude mid frequency theta activity is seen. Beta activity is present in a symmetrical fashion bifrontally Photic stimulation provokes no significant abnormalities and a normal driving response No time during waking tracing is evidence for potentially epileptogenic activity Interpretation This a normal EEG during wakefulness without evidence for focal or generalized encephalopathy without evidence for potentially epileptogenic activity Clinical Correlation This is a normal study failing to reveal evidence for focal or generalized encephalopathy or potentially epileptogenic activity but the absence of the latter does not exclude the diagnosis of a seizure disorder and clinical relations required Richmond Perez MD
[2019-08-16 15:58] VITALS: BP 143/79; TEMP 97.9; O2SAT 96
--- NOTE | 2019-08-16 18:18 | Ultrasound Report ---
US carotid doppler BI HISTORY: Mental status change evaluation of vessels COMPARISON: None. TECHNIQUE: Real-time, grayscale, and color Doppler sonography of the carotid arteries was performed. Imaging reviewed in the transverse and longitudinal planes. All measurements were calculated based on NASCET criteria. FINDINGS: Antegrade flow is seen in the bilateral vertebral arteries. The brachial pressures are hemodynamically similar. Minimal plaque formation bilaterally The peak systolic velocity within the right ICA is 67. The right systolic ratio is 1.1. The peak systolic velocity within the left ICA is 68. The left systolic ratio is 1.0. IMPRESSION: No hemodynamically significant stenosis seen within the carotid arteries. ACT 112: Negative or not required by law. The above report was generated using voice recognition software. It may contain grammatical, syntax or spelling errors. Electronically signed by: Justo Crenshaw M.D. 08/16/2019 6:17 PM
--- NOTE | 2019-08-16 19:39 | Discharge Summary ---
Date of Service August 16, 2019 Admission HPI Per Admitting Provider History obtained from patient, family, and records. Patient is a fair historian. Medical history significant for hypertension, past tobacco use. Patient was at a nighttime gathering with friends when his noticed memory impairment. Patient could not remember details regarding recent [employer] gift to a grandson, recent visit by family members for the holidays. No headache, no chest pain, no S OB. No prior episodes. No unusual stress at home. No witnessed seizures, tongue biting episodes. No prior episodes. Patient does not take his blood pressure at home. Patient's asked witnessed apneic episodes during sleep. Stroke alert called upon arrival at the ER. 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 Admission Exam Per Admitting Provider GENERAL: Comfortable, slightly anxious, pleasant, obese, no respiratory distress SKIN: Normal color, warm HEENT: Partial alopecia, [place] palpebral conjunctivae, no ptosis, dry buccal mucosa NECK : Supple, short neck, no tenderness CHEST : CTA, no tenderness HEART : RRR, no obvious murmurs ABDOMEN: Some distention, nontender EXTREMITIES : Minimal LE swelling, no LE tenderness, no other conspicuous deformities noted NEUROLOGIC : Coherent, no facial asymmetry, no other gross focality Principal Diagnosis Global transient amnesia, TIA (transient ischemic attack), diabetes mellitus type 2 -new onset, hypertensive urgency Discharge Exam GENERAL: Elderly obese male, lying in bed, comfortable, in no acute distress HEENT: Normocephalic, atraumatic, EOMI, PERRL NECK : Supple LUNGS: Clear to auscultation bilaterally, no wheezing or rhonchi or crackles HEART : RRR, no obvious murmurs ABDOMEN: Normal bowel sounds, soft, obese, nontender, no guarding EXTREMITIES : no LE edema b/l, no LE tenderness, strength 5 out of 5 in all major muscle groups, no sensory loss noted, moves all 4 extremities spontaneously and without difficulty SKIN: warm, dry, no rashes or lesions NEUROLOGIC : Alert and oriented x3, speech fluent, no facial asymmetry, moves all 4 extremities spontaneously, no sensory loss noted Discharge Data Allergies Allergy/AdvReac Type Severity Reaction Status Date / Time No Known Allergies Allergy Unverified 01/01/20 22:55 Consultations 08/15/19 23:44 ED Decision to Admit Stat 08/16/19 02:40 Consult Neurology Routine Ordered Studies 08/15/19 22:38 CT head/brain wo con Stat IMPRESSION: There is no hemorrhage, mass effect, or evidence of acute territorial ischemia by CT criteria. 08/16/19 00:28 US venous doppler LE BI Urgent IMPRESSION: No DVT within the right or left lower extremity. 08/16/19 01:30 MR angio head wo con Routine IMPRESSION: Unremarkable MRA without aneurysm, dissection, high-grade stenosis or proximal branch occlusion identified. MR brain wo con Routine IMPRESSION: 1. No acute intracranial findings. 2. Numerous white matter T2 hyperintense foci suggestive of small vessel disease. 08/16/19 15:27 US carotid doppler BI Routine IMPRESSION: No hemodynamically significant stenosis seen within the carotid arteries. Hospital Course (1) TGA (transient global amnesia): vs. TIA Head CT - negative (see details above) MRI/MRA brain- negative (see details above) EEG -negative for epileptic activity Carotid ultrasound -negative for any significant stenosis Neurology consulted, aspirin 81 mg daily started -Patient may need neurology outpatient follow-up as needed Diabetes mellitus type 2, new diagnosis -Hemoglobin A1c 6.5% -ict educator consulted, provided information for the patient -Patient will need to follow-up with primary care provider, recommended to michael w-up with his PCP within 1 week -In the meantime he should control diabetes by diet/instructions from diabetes education -Patient was started on atorvastatin HTN, - BP significantly elevated on admission - Patient received hydralazine, then observed in the hospital BP acceptable - Continue lisinopril, consider adding Norvasc if BP continues to be uncontrolled - Unknown baseline control - Recommend to follow-up with primary care provider - Recommend to rule out DARCY Elevated TSH -Patient does not have a known history of hypothyroidism -Recommend to recheck TSH level, free T4 at primary care office as outpatient, patient aware and understands Leg cramps -Doppler negative for DVT Total Time Total Time Spent Total Time Spent (In Minutes): 40 Total Time Includes: Examination of the Patient, Discharge Planning, Medication Reconciliation and Communication With Other Providers Discharge Plan Discharge Items Patient Disposition: Home - Self-Care Reason For Visit: HTN URGENCY,TRANSIENT AMNESIA Discharge Diagnosis: Global transient amnesia, TIA (transient ischemic attack), diabetes mellitus type 2, hypertensive urgency Activity: As commented below Activity Comment: as tolerated, pace yourself, ask for help as needed Non-emergency contact: Primary Care Provider and Neurologist Call non-emergency contact if: you have any medication questions and your symptoms worsen Follow-up/Referrals: Gera Pastor [Primary Care Provider] - Diet: Carb Consistent or DM2 and Heart Healthy Addtl Attending Provider Instructions: Make sure to follow-up with your primary care provider within 1 week. Start taking aspirin 81 mg daily. Also start taking atorvastatin daily, this medication is for your cholesterol and plaque stabilization. You were diagnosed with diabetes mellitus type 2, and provided with diabetic education. It is crucial that you follow-up with your primary care doctor, as you may need to be started on medication in the future for diabetes control. In the meantime please follow instructions from certified adapted physical educator, and follow diabetic diet. You will also need your TSH level re-checked at your primary care doctor's office. You may need to be started on medication for your thyroid. UPDATE: Home dose of lisinopril is incorrect in our system, his home dose is 40 mg - continue taking 40 mg daily. Pending Studies at Discharge: No Stand-Alone Forms: My [facility], Smoking Cessation Medications and DC Order Prescriptions: New atorvastatin 20 mg Tablet 20 mg PO QAM 30 Days Qty: 30 RF: 0 lisinopril 10 mg Tablet 30 mg PO QAM 30 Days Qty: 90 RF: 0 aspirin [Ecotrin Low Strength] 81 mg Tablet,Delayed Release (Dr/Ec) 81 mg PO QAM 30 Days Qty: 30 RF: 0 Discontinued lisinopril 20 mg Tablet 20 mg PO DAILY RF: 0 Discharge Orders: Discharge Order (Routine); Ordered 08/16/19 Ordered By: Rush Ash/Other Patient Handouts: Diabetes Healthy Meals, Diabetes Meal Planning, A1C Admission Data Admit Date/Time: 08/16/19 00:42 Attending Provider: Rush Barrett Admit Provider: Ran Peñaloza Primary Care Provider: Gera Pastor Other Providers: Ran Peñaloza ; Richmond Perez Other Interventions: Discharge Summary Assessment (RN) Last Done: 08/16/19 19:39 DC Date/Time DO NOT enter until pt leaves facility: 08/16/19 20:10
[2019-08-16 19:40] VITALS: PULSE 84
--- NOTE | 2019-08-17 08:15 | Electrocardiogram Report ---
Test Reason : Blood Pressure : / mmHG Vent. Rate : 080 BPM Atrial Rate : 080 BPM P-R Int : 156 ms QRS Dur : 076 ms QT Int : 376 ms P-R-T Axes : 039 083 050 degrees QTc Int : 433 ms Normal sinus rhythm Normal ECG No previous ECGs available Confirmed by Lavelle Christine ([id number]) on 08/16/2019 5:43:22 PM Referred By: REFERRED SELF Confirmed By:[place] Christine
[2019-08-17] MEDS ORDERED: lisinopriL 10 MG TAB PO SCH (09:00)
--- NOTE | 2019-09-04 15:35 | Coding Query ---
A supporting diagnosis is required for the test/procedure performed on this patient in order for us to be reimbursed by the patient's insurance. Please provide a supporting diagnosis for the following test/procedure listed below next to the test name along with your signature. *If there is no additional diagnosis for this patient that would support the following test/procedure please document that below next to the test/procedure. Test(s)/Procedure(s) that require a supporting diagnosis: BILATERAL LOWER EXTREMITY VENOUS DOPPLER DIAGNOSIS:____leg pain/cramps Provider Signature: JNO Date: __09/05/19 Thank you Angelika Pavon Health Information Management Once completed, please kindly fax back to [phone] For questions please call [phone] [place]
== END 2019-08-16 20:10 | disposition home or self-care (01) ==
LOC: ED 22:26 → 2N 22:26

== ENCOUNTER 2021-03-10 12:11 | Inpatient (IN) ==
[2021-03-10] MEDS ORDERED: CEFEPIME 2,000 MG/20 ML VIAL IV STA (12:40)
[2021-03-10] MEDS ORDERED: ACETAMINOPHEN 1000 MG/100 ML IV IV STA (12:40)
[2021-03-10] MEDS ORDERED: SODIUM CHLORIDE 0.9% 1000ML 1,000 ML IV SCH (12:45)
--- NOTE | 2021-03-10 12:47 | Emergency Department Note ---
Impression & Plan Atrial fibrillation with rapid ventricular response, Hypotension, Thrombocytopenia, Headache, Lower abdominal pain, Anaplasmosis ED Provider Note NAME: GÉNESIS DAVILA AGE: 71 SEX: M : 1950 ARRIVES VIA: Walk-In INFORMANT: [Patient] ED PROVIDER(S): [Farrukh Martin MD] CHIEF COMPLAINT: Illness HISTORY OF PRESENT ILLNESS: The patient is a 71-year-old male who presents to the ED with complaints of an illness and flulike symptoms for about a week. The patient states that he has had urinary frequency and urgency. He has had sweats and chills and muscle pain. He has had intermittent headaches that have been as bad as a 9/10. Right now, the headache is primarily on the right side although, in the last week, the pain has been in other areas. The patient has had some cough and some mild shortness of breath. He has had some intermittent lower abdominal pain although this has now resolved. The patient went to acute care at [facility] last week and his urine testing was negative. He started Keflex on his own 5 days ago. Keflex really has not helped his symptoms. He had a televisit yesterday with his doctors office and he was advised to come to this ER if worsening. He worsened so he came for a visit. The patient is not vaccinated against COVID-19 but he has had this illness last year. REVIEW OF SYSTEMS: See HPI for pertinent positives and negatives. A total of ten systems were reviewed and were otherwise negative. PMHx/PSHx: See Below SOCIAL HISTORY: See Below. PHYSICAL EXAM: GENERAL: Patient is in no acute distress. HEENT: No acute trauma, normocephalic atraumatic, mucous membranes moist, no nasal congestion, no scleral icterus. NECK: No stridor, no adenopathy, no meningismus, trachea is midline. LUNGS: No respiratory distress, occasional wheezes heard bilaterally, no crackles. HEART: Tachycardic and irregular, no murmurs. ABDOMEN: Soft, nontender, bowel sounds positive, no hernias, no peritonitis. EXTREMITIES: No cyanosis, mild bilateral pedal edema, full range of motion of all the joints without pain or difficulty, no signs for acute trauma. NEUROLOGIC: Oriented x 3, no acute motor or sensory deficits, no focal weakness. SKIN: No rash, no jaundice, no diaphoresis. DIFFERENTIAL DIAGNOSIS: Sepsis, UTI, pneumonia, metabolic abnormality, electrolyte abnormalities, cardiac sources, COVID-19, cellulitis, UTI, bacteremia, intracerebral event, toxicologic etiology, neurologic event, as well as other pathologies. EMERGENCY DEPARTMENT COURSE/PROCEDURES: ECG: Indication was tachycardia. The ECG shows a rapid atrial fibrillation with a rate of 162. There is some nonspecific ST change. PVCs are present. There is no ST elevation, QTc is 413. Repeat EKG: There is a normal sinus rhythm with a rate of 92. No ST elevation, no PVCs. The QTc is 425. Compared to an ECG from earlier today, the A. fib has resolved. Continuous Cardiac Monitoring: An order was placed for continuous cardiac monitoring. The monitor shows a rate of 190 with rapid atrial fibrillation. Critical Care Note: I have personally spent 55 minutes of critical care time in the direct management of this patient. This includes bedside care, interpretation of diagnostic studies, and testing, discussion with consultants, patient, and family members, and other required patient management activities. This 55 minutes is in excess of all separately billable procedures. MEDICAL DECISION MAKING: There is no leukocytosis or concerning anemia. Platelet count was low at 82. No coagulopathy. Magnesium was low 1.6, no kidney failure. There were some subtle liver enzyme elevations. The patient appeared to be in a euthyroid state. Lactic acid level was not elevated making severe sepsis less likely. Chest x-ray did not show pneumonia or CHF. ECG showed a rapid atrial fibrillation without any acute ischemic change. Cardiac enzyme testing x1 is not consistent with acute cardiac injury. Urinalysis did not show evidence for infection. Lyme disease testing returned equivocal. Covid testing returned negative. Anaplasmosis smear returned positive. Brain CT showed no acute bleed or mass-effect. Abdominal and pelvis CT showed no acute surgical process or ac herbert infectious process. On exam, the patient was not toxic. He was breathing easily. He had a very mild temperature elevation. The patient was aggressively managed given his presentation. His heart rate was quite quick and he was hypotensive. He received IV saline, 2 L. He was given IV magnesium, IV cefepime and IV Tylenol. He received IV doxycycline. He was given IV Toradol for his headache. With the above treatment, the patient feels markedly improved. He now has a heart rate in the 90s, his blood pressure is now above 100 systolic. He did convert to a sinus rhythm while here in the ED. Repeat EKG confirmed a sinus rhythm. The patient is in need of a hospital stay. He did meet criteria for sepsis. 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 I suspect the infection caused his atrial fibrillation. The atrial fibrillation made his condition even worse. I did briefly discuss the case with cardiology. The plan was to use an esmolol drip for rate control if the heart rate was not controlled with resuscitation--the drip was not required. The patient is aware of his findings, case management has been involved. The on-call hospitalist has been consulted. Past Med/Surg History Medical History Diabetes type 2, controlled Diagnosed 08/16/2019 Hypertension Hypertension, uncontrolled Memory loss 08/16/19 Stroke-like symptom 08/16/19 TGA (transient global amnesia) 08/16/19 Surgical History No pertinent past surgical history S/P cataract surgery bilateral with lens implant Family History Father Hypertension Denies family history of Ovarian cancer Prostate cancer Myocardial infarction Breast cancer Colorectal cancer Social History Smoking Status: Former smoker Tobacco Type: Cigarettes Age Started Using Tobacco: 19; Age Quit Using Tobacco: 35; packs per day: 1; Second Hand Exposure: No; Hx Alcohol Use: No Hx Substance Use: No Preferred Language: Portuguese Communication Ability: Effective Visual Impairment: No Limitations Hearing Ability: Hard of Hearing Regrinder Required: No Beliefs That Will Affect Care: None marital status: Current Living Situation: Spouse current occupational status: retired Feels Safe at Home: Yes caffeine: Yes during the past year weight has: remained stable Dental Care, Regularly: Yes Physical Activity Frequency: Daily Seatbelt Use: always Sunscreen Use: No Assistive Devices: None Allergies Allergies Allergy/AdvReac Type Severity Reaction Status Date / Time No Known Drug Allergies Allergy Verified 03/10/21 13:31 Home Meds Home Medications Medication Instructions Recorded Confirmed atorvastatin 20 mg tablet (Lipitor) 20 mg PO QAM 03/10/21 03/10/21 celecoxib 200 mg capsule (Celebrex) 200 mg PO QAM 03/10/21 03/10/21 lisinopril 40 mg tablet (Zestril) 40 mg PO QAM 03/10/21 03/10/21 metformin 500 mg tablet 500 mg PO QAM 03/10/21 03/10/21 Results & Data (ED) Vital Signs Vital Signs - 24 hr 03/10/21 12:14 03/10/21 12:40 03/10/21 12:55 Temperature 37.8 C H Temperature Source Temporal Artery Scan Pulse Rate 190 H 175 H Pulse Rate [Apical] 175 H 180 H Pulse Rhythm Irregular Pulse Rhythm [Apical] Irregular Pulse Strength [Apical] Normal Respiratory Rate 24 22 22 Respiratory Effort / Characteristics Non-Labored Respiratory Depth Normal Blood Pressure 123/76 Blood Pressure [Right Arm] 132/79 Blood Pressure Mean 91 Blood Pressure Mean [Right Arm] 96 Pulse Oximetry 97 98 97 Oxygen Delivery Method Room Air Room Air Sepsis Recent Fever Within 48 Hours Yes Sepsis New/Unexplained Change in Mental Status N/A Sepsis Action Taken by Nursing Physician Notified 03/10/21 13:10 03/10/21 13:15 03/10/21 13:30 Temperature Temperature Source Pulse Rate Pulse Rate [Apical] 102 H 159 H 106 H Pulse Rhythm Pulse Rhythm [Apical] Pulse Strength [Apical] Respiratory Rate 22 22 16 Respiratory Effort / Characteristics Non-Labored Non-Labored Non-Labored Respiratory Depth Normal Normal Blood Pressure Blood Pressure [Right Arm] 132/79 90/71 L 118/76 Blood Pressure Mean Blood Pressure Mean [Right Arm] 96 77 90 Pulse Oximetry 97 97 96 Oxygen Delivery Method Room Air Room Air Room Air Sepsis Recent Fever Within 48 Hours Sepsis New/Unexplained Change in Mental Status Sepsis Action Taken by Nursing 03/10/21 13:45 03/10/21 14:00 03/10/21 14:15 Temperature 37.8 C H Temperature Source Oral Pulse Rate Pulse Rate [Apical] 176 H 180 H 91 H Pulse Rhythm Pulse Rhythm [Apical] Regular Pulse Strength [Apical] Respiratory Rate 20 20 20 Respiratory Effort / Characteristics Non-Labored Non-Labored Non-Labored Respiratory Depth Normal Normal Normal Blood Pressure Blood Pressure [Right Arm] 95/73 L 86/62 L 121/71 Blood Pressure Mean Blood Pressure Mean [Right Arm] 80 70 87 Pulse Oximetry 95 97 96 Oxygen Delivery Method Room Air Room Air Room Air Sepsis Recent Fever Within 48 Hours Sepsis New/Unexplained Change in Mental Status Sepsis Action Taken by Nursing 03/10/21 14:30 03/10/21 14:45 03/10/21 15:00 Temperature Temperature Source Pulse Rate Pulse Rate [Apical] 91 H 102 H Pulse Rhythm Pulse Rhythm [Apical] Pulse Strength [Apical] Respiratory Rate 20 20 Respiratory Effort / Characteristics Non-Labored Non-Labored Non-Labored Respiratory Depth Normal Normal Blood Pressure Blood Pressure [Right Arm] 120/83 117/78 Blood Pressure Mean Blood Pressure Mean [Right Arm] 95 91 Pulse Oximetry 96 94 Oxygen Delivery Method Room Air Room Air Sepsis Recent Fever Within 48 Hours Sepsis New/Unexplained Change in Mental Status Sepsis Action Taken by Nursing 03/10/21 15:30 Temperature Temperature Source Pulse Rate Pulse Rate [Apical] 90 Pulse Rhythm Pulse Rhythm [Apical] Regular Pulse Strength [Apical] Respiratory Rate 20 Respiratory Effort / Characteristics Non-Labored Respiratory Depth Normal Blood Pressure Blood Pressure [Right Arm] 136/78 Blood Pressure Mean Blood Pressure Mean [Right Arm] 97 Pulse Oximetry 96 Oxygen Delivery Method Room Air Sepsis Recent Fever Within 48 Hours Sepsis New/Unexplained Change in Mental Status Sepsis Action Taken by Assisted Medications Current Medication List: was personally reviewed by me Laboratory Data Attestation: I reviewed the patient's lab results. Result diagrams: 03/10/21 12:55 03/10/21 12:55 Lab Results 03/10/21 03/10/21 03/10/21 Range/Units 12:55 12:55 12:55 WBC 6.14 (4.8-10.8) K/uL RBC 5.14 (4.7-6.1) M/uL Hgb 14.6 (14.0-18.0) g/dL Hct 42.3 (42-52) % MCV 82.3 (80-100) fL MCH 28.4 (25-34) pg MCHC 34.5 (32-36) g/dL RDW Std Deviation 40.0 (36.4-46.3) fL RDW Coeff of Reggie 13.2 (11.5-14.5) % Plt Count 82 L (130-400) K/uL MPV 11.2 H (7.4-10.4) fL Immature Gran % (Auto) 0.2 % Neut % (Auto) 72.8 % Lymph % (Auto) 20.0 % [place] % (Auto) 6.0 % Eos % (Auto) 0.5 % Baso % (Auto) 0.5 % Neut # (Auto) 4.47 (1.4-6.5) K/uL Lymph # (Auto) 1.23 (1.2-3.4) K/uL [place] # (Auto) 0.37 (0.11-0.59) K/uL Eos # (Auto) 0.03 (0-0.5) K/uL Baso # (Auto) 0.03 (0-0.2) K/uL Immature Gran # (Auto) 0.01 (0.00-0.02) K/uL Platelet Estimate Decreased L (Normal) Peripher Smr Path Cons PT 11.3 (9.0-12.0) Seconds INR 1.1 (0.9-1.1) APTT 25.2 (21.0-31.0) Seconds PTT Ratio 1.0 Sodium 137 (136-145) mmol/L Potassium 4.3 (3.5-5.1) mmol/L Chloride 105 (98-107) mmol/L Carbon Dioxide 26 (21-32) mmol/L Anion Gap 6.0 (3-11) BUN 12 (7-18) mg/dl Creatinine 0.95 (0.6-1.4) mg/dl Est Cr Clr Drug Dosing 108.6 ml/min Est GFR ( Amer) 94.3 ml/min Est GFR (Non-Af Amer) 81.3 ml/min BUN/Creatinine Ratio 12.6 (10-20) Glucose 111 H (70-99) mg/dl Lactate (0.4-2.0) mmol/L Calcium 8.6 (8.5-10.1) mg/dl Magnesium 1.6 L (1.8-2.4) mg/dl Total Bilirubin 1.2 H (0.2-1) mg/dl AST 69 H (15-37) U/L ALT 137 H (12-78) U/L Alkaline Phosphatase 81 (45-117) U/L Troponin I < 0.015 (0-0.045) ng/ml Total Protein 7.2 (6.4-8.2) gm/dl Albumin 3.4 (3.4-5.0) gm/dl Globulin 3.8 (2.5-4.0) gm/dl Albumin/Globulin Ratio 0.9 (0.9-2) Procalcitonin (0-0.5) ng/ml TSH 2.500 (0.300-4.500) uIu/ml Urine Color Urine Appearance (Clear) Urine pH (4.5-7.5) Ur Specific [place] (1.000-1.030) Urine Protein (Negative) Urine Glucose (UA) (Negative) Urine Ketones (Negative) Urine Blood (Negative) Urine Nitrite (Negative) Urine Bilirubin (Negative) Urine Urobilinogen (Negative) Ur Leukocyte Esterase (Negative) Urine WBC (Auto) (0-5) /hpf Urine RBC (Auto) (0-4) /hpf U Hyaline Cast (Auto) (0-5) /lpf U Epithel Cells (Auto) (0-5) /lpf Urine Bacteria (Auto) (Negative) Anaplasma Smear See Comment A Anaplasma Comment Pos for Anaplasma Lyme Disease IgG Ab (Negative) Lyme Disease IgM Ab (Negative) COVID-19 Eval Order SARS-CoV-2 (PCR) (Negative) 03/10/21 03/10/21 03/10/21 Range/Units 12:55 12:55 12:55 WBC (4.8-10.8) K/uL RBC (4.7-6.1) M/uL Hgb (14.0-18.0) g/dL Hct (42-52) % MCV (80-100) fL MCH (25-34) pg MCHC (32-36) g/dL RDW Std Deviation (36.4-46.3) fL RDW Coeff of Reggie (11.5-14.5) % Plt Count (130-400) K/uL MPV (7.4-10.4) fL Immature Gran % (Auto) % Neut % (Auto) % Lymph % (Auto) % [place] % (Auto) % Eos % (Auto) % Baso % (Auto) % Neut # (Auto) (1.4-6.5) K/uL Lymph # (Auto) (1.2-3.4) K/uL [place] # (Auto) (0.11-0.59) K/uL Eos # (Auto) (0-0.5) K/uL Baso # (Auto) (0-0.2) K/uL Immature Gran # (Auto) (0.00-0.02) K/uL Platelet Estimate (Normal) Peripher Smr Path Cons PT (9.0-12.0) Seconds INR (0.9-1.1) APTT (21.0-31.0) Seconds PTT Ratio Sodium (136-145) mmol/L Potassium (3.5-5.1) mmol/L Chloride (98-107) mmol/L Carbon Dioxide (21-32) mmol/L Anion Gap (3-11) BUN (7-18) mg/dl Creatinine (0.6-1.4) mg/dl Est Cr Clr Drug Dosing ml/min Est GFR ( Amer) ml/min Est GFR (Non-Af Amer) ml/min BUN/Creatinine Ratio (10-20) Glucose (70-99) mg/dl Lactate 1.6 (0.4-2.0) mmol/L Calcium (8.5-10.1) mg/dl Magnesium (1.8-2.4) mg/dl Total Bilirubin (0.2-1) mg/dl AST (15-37) U/L ALT (12-78) U/L Alkaline Phosphatase (45-117) U/L Troponin I (0-0.045) ng/ml Total Protein (6.4-8.2) gm/dl Albumin (3.4-5.0) gm/dl Globulin (2.5-4.0) gm/dl Albumin/Globulin Ratio (0.9-2) Procalcitonin 0.15 (0-0.5) ng/ml TSH (0.300-4.500) uIu/ml Urine Color Urine Appearance (Clear) Urine pH (4.5-7.5) Ur Specific [place] (1.000-1.030) Urine Protein (Negative) Urine Glucose (UA) (Negative) Urine Ketones (Negative) Urine Blood (Negative) Urine Nitrite (Negative) Urine Bilirubin (Negative) Urine Urobilinogen (Negative) Ur Leukocyte Esterase (Negative) Urine WBC (Auto) (0-5) /hpf Urine RBC (Auto) (0-4) /hpf U Hyaline Cast (Auto) (0-5) /lpf U Epithel Cells (Auto) (0-5) /lpf Urine Bacteria (Auto) (Negative) Anaplasma Smear Anaplasma Comment Lyme Disease IgG Ab Negative Cancelled (Negative) Lyme Disease IgM Ab Equivocal A Cancelled (Negative) COVID-19 Eval Order SARS-CoV-2 (PCR) (Negative) 03/10/21 03/10/21 03/10/21 Range/Units 13:09 13:09 13:42 WBC (4.8-10.8) K/uL RBC (4.7-6.1) M/uL Hgb (14.0-18.0) g/dL Hct (42-52) % MCV (80-100) fL MCH (25-34) pg MCHC (32-36) g/dL RDW Std Deviation (36.4-46.3) fL RDW Coeff of Reggie (11.5-14.5) % Plt Count (130-400) K/uL MPV (7.4-10.4) fL Immature Gran % (Auto) % Neut % (Auto) % Lymph % (Auto) % [place] % (Auto) % Eos % (Auto) % Baso % (Auto) % Neut # (Auto) (1.4-6.5) K/uL Lymph # (Auto) (1.2-3.4) K/uL [place] # (Auto) (0.11-0.59) K/uL Eos # (Auto) (0-0.5) K/uL Baso # (Auto) (0-0.2) K/uL Immature Gran # (Auto) (0.00-0.02) K/uL Platelet Estimate (Normal) Peripher Smr Path Cons PT (9.0-12.0) Seconds INR (0.9-1.1) APTT (21.0-31.0) Seconds PTT Ratio Sodium (136-145) mmol/L Potassium (3.5-5.1) mmol/L Chloride (98-107) mmol/L Carbon Dioxide (21-32) mmol/L Anion Gap (3-11) BUN (7-18) mg/dl Creatinine (0.6-1.4) mg/dl Est Cr Clr Drug Dosing ml/min Est GFR ( Amer) ml/min Est GFR (Non-Af Amer) ml/min BUN/Creatinine Ratio (10-20) Glucose (70-99) mg/dl Lactate (0.4-2.0) mmol/L Calcium (8.5-10.1) mg/dl Magnesium (1.8-2.4) mg/dl Total Bilirubin (0.2-1) mg/dl AST (15-37) U/L ALT (12-78) U/L Alkaline Phosphatase (45-117) U/L Troponin I (0-0.045) ng/ml Total Protein (6.4-8.2) gm/dl Albumin (3.4-5.0) gm/dl Globulin (2.5-4.0) gm/dl Albumin/Globulin Ratio (0.9-2) Procalcitonin (0-0.5) ng/ml TSH (0.300-4.500) uIu/ml Urine Color Dark Yellow Urine Appearance Clear (Clear) Urine pH 5.5 (4.5-7.5) Ur Specific [place] 1.024 (1.000-1.030) Urine Protein Trace H (Negative) Urine Glucose (UA) Negative (Negative) Urine Ketones Negative (Negative) Urine Blood Negative (Negative) Urine Nitrite Negative (Negative) Urine Bilirubin Negative (Negative) Urine Urobilinogen Negative (Negative) Ur Leukocyte Esterase Negative (Negative) Urine WBC (Auto) 1-5 (0-5) /hpf Urine RBC (Auto) 0-4 (0-4) /hpf U Hyaline Cast (Auto) 5-10 H (0-5) /lpf U Epithel Cells (Auto) 10-20 H (0-5) /lpf Urine Bacteria (Auto) Negative (Negative) Anaplasma Smear Anaplasma Comment Lyme Disease IgG Ab (Negative) Lyme Disease IgM Ab (Negative) COVID-19 Eval Order Covid19 at [facility] SARS-CoV-2 (PCR) NEGATIVE (Negative) Administered Medications Doxycycline Hyclate 100 mg/ (Dextrose) 110 mls @ 50 mls/hr IV Q12H CLARA Stop: 03/24/21 13:44 Last Admin: 03/10/21 14:56 Dose: 50 mls/hr Documented by: [id number] Discontinued Medications Acetaminophen (Acetaminophen 1000 Mg/100 Ml Iv) 1,000 mg IV NOW STA Stop: 03/10/21 12:41 Last Admin: 03/10/21 13:05 Dose: 1,000 mg Documented by: [id number] Sodium Chloride (Nss 1000ml) 1,000 mls @ 999 mls/hr IV .Q1H1M CLARA Stop: 03/10/21 13:45 Last Infusion: 03/10/21 13:47 Dose: 0 mls/hr Documented by: [id number] Admin: 03/10/21 12:46 Dose: 999 mls/hr Documented by: [id number] Cefepime HCl (Maxipime) 2,000 mg in 20 mls @ 5 mls/min IV NOW STA; Protocol Stop: 03/10/21 12:43 Last Admin: 03/10/21 13:21 Dose: 5 mls/min Documented by: [id number] Sodium Chloride (Nss 1000ml) 1,000 mls @ 999 mls/hr IV .Q1H1M ONE Stop: 03/10/21 14:43 Last Infusion: 03/10/21 15:08 Dose: 0 mls/hr Documented by: [id number] Admin: 03/10/21 13:58 Dose: 999 mls/hr Documented by: [id number] Magnesium Sulfate/Dextrose (Magnesium Sulfate / D5w) 1 gm in 100 mls @ 100 mls/hr IV NOW STA Stop: 03/10/21 14:42 Last Infusion: 03/10/21 15:55 Dose: 0 mls/hr Documented by: [id number] Admin: 03/10/21 14:56 Dose: 100 mls/hr Documented by: [id number] Ioversol (Optiray 320 125ml) 119 ml IV ONCE ONE Stop: 03/10/21 14:38 Last Admin: 03/10/21 14:37 Dose: 119 ml Documented by: [id number] Ketorolac Tromethamine (Ketorolac Tromethamine 15 Mg/Ml Vial) 15 mg IV NOW STA Stop: 03/10/21 15:14 Last Admin: 03/10/21 15:50 Dose: 15 mg Documented by: [id number] Imaging Data Radiologist's Impression: Chest X-Ray 03/10/21 12:40 XR chest 1V portable HISTORY: SEPSIS COMPARISON: None. FINDINGS: No focal lung consolidations to suggest pneumonia. No evidence for pulmonary edema. There are low lung volumes. The cardiac silhouette is mildly enlarged. No pleural effusions. No pneumothorax. An 8 mm nodular density within the right lateral lung base. This may represent a nipple shadow. IMPRESSION: 1. No acute process within the chest. 2. An 8 mm nodular density within the right lateral lung base. This may represent a nipple shadow. This would be better assessed on the same day abdomen and pelvis CT. ACT 112: Negative or not required by law. Electronically signed by: Javed Steele M.D. 03/10/2021 1:21 PM Abdomen/Pelvis CT 03/10/21 12:48 CT OF THE ABDOMEN AND PELVIS WITH CONTRAST CLINICAL HISTORY: Fever. Abdominal pain. COMPARISON STUDY: None. TECHNIQUE: Following IV administration of 119 mL of Optiray, axial images of the abdomen and pelvis were obtained from the lung bases to the proximal femurs. Images were reviewed in the axial, sagittal, and coronal planes. IV contrast was administered without complication. Automated exposure control was utilized for the study. A dose lowering technique was utilized adhering to the principles of ALARA. FINDINGS: No pneumatosis, free air or portal venous gas is present. Numerous water attenuation hepatic lesions measure up to 5.2 cm. These represent cysts. There are numerous subcentimeter lesions are too small to characterize but also likely reflect cysts. There are multiple water attenuation bilateral renal lesi ons consistent with cysts as well as numerous subcentimeter lesions which are too small to characterize. There is mild to moderate splenomegaly. The adrenal glands and pancreas are unremarkable. Is no peripancreatic or pericholecystic infiltration. There is no biliary or pancreatic ductal dilatation. There is no hydronephrosis. The prostate is moderately enlarged. Colonic diverticulosis is noted without evidence for acute diverticulitis. There is no lymphadenopathy. There is no ascites. Small fat-containing right inguinal hernia is present. No acute fracture or suspicious lesion is identified within the visualized skeletal structures. IMPRESSION: 1. No acute process within the abdomen or pelvis. 2. Mild to moderate splenomegaly. 3. Colonic diverticulosis without evidence for acute diverticulitis. 4. Numerous hepatic and renal cysts. ACT 112: Negative or not required by law. Electronically signed by: Karl Nicolas M.D. 03/10/2021 3:[address] 03/10/21 12:[address] DOSE: 1938.58 mGycm HISTORY: right sided headache TECHNIQUE: Multiaxial CT images of the head were performed without the use of intravenous contrast. Automated exposure control was utilized for this study. A dose lowering technique was utilized adhering to the principles of ALARA. Comparison: Head CT 08/15/2019. Findings: The paranasal sinuses and mastoid air cells are clear. The calvarium and skull base are intact. There is no mass, hematoma, midline shift, acute infarct. White matter hypodensity is nonspecific but suggestive of microvascular ischemic change. The ventricles and sulci demonstrate mild age-related involutional changes. Stable partially calcified scalp nodules likely representing sebaceous cyst. Impression: No significant change compared to the prior study. No acute intracranial abnormality. ACT 112: Negative or not required by law. Electronically signed by: Javed Steele M.D. 03/10/2021 2:46 PM Discharge Plan Visit Data Chief Complaint: Illness Stated Complaint: BODY ACHES/JOINT PAINS SEVERE HEADACHES ED Provider: Farrukh Martin Discharge Problem: Atrial fibrillation with rapid ventricular response, Hypotension, Thrombocytopenia, Headache, Lower abdominal pain, Anaplasmosis Patient Disposition: Admitted As Inpatient Condition: Fair Forms Stand Alone Forms: [facility] [place] [employer] Prescriptions Prescriptions: No Action celecoxib [Celebrex] 200 mg capsule 200 mg PO QAM RF: 0 metformin 500 mg tablet 500 mg PO QAM RF: 0 atorvastatin [Lipitor] 20 mg tablet 20 mg PO QAM RF: 0 lisinopril [Zestril] 40 mg tablet 40 mg PO QAM RF: 0 Referrals Referrals: Constantine Augustine CRNP [Primary Care Provider] - Discharge Problem: Hypotension Qualifiers: Hypotension type: unspecified hypotension type Qualified Code(s): I95.9 - Hypotension, unspecified Headache Qualifiers: Headache type: unspecified Headache chronicity pattern: acute headache Intractability: not intractable Qualified Code(s): R51.9 - Headache, unspecified
--- NOTE | 2021-03-10 13:23 | XRay Report ---
XR chest 1V portable HISTORY: SEPSIS COMPARISON: None. FINDINGS: No focal lung consolidations to suggest pneumonia. No evidence for pulmonary edema. There a re low lung volumes. The cardiac silhouette is mildly enlarged. No pleural effusions. No pneumothorax . An 8 mm nodular density within the right lateral lung base. This may represent a nipple shadow. IMPRESSION: 1. No acute process within the chest. 2. An 8 mm nodular density within the right lateral lung base. This may represent a nipple shadow. Th is would be better assessed on the same day abdomen and pelvis CT. ACT 112: Negative or not required by law. Electronically signed by: Javed Steele M.D. 03/10/2021 1:21 PM
[2021-03-10 13:26] LABS: INR 1.1 (0.9-1.1); Partial Thromboplastin Time 25.2 Seconds (21.0-31.0); Prothrombin Time 11.3 Seconds (9.0-12.0)
[2021-03-10 13:28] LABS: Alanine Aminotransferase 137 U/L (12-78); Albumin Level 3.4 gm/dl (3.4-5.0); Aspartate Aminotransferase 69 U/L (15-37); BUN Creatinine Ratio 12.6 (10-20); Blood Urea Nitrogen 12 mg/dl (7-18); Calcium 8.6 mg/dl (8.5-10.1); Carbon Dioxide 26 mmol/L (21-32); Chloride 105 mmol/L (98-107); Creatinine Clr Calc Pharmacy 108.6 ml/min; Est GFR (African American) 94.3 ml/min; Est GFR (Non-African American) 81.3 ml/min; Glucose 111 mg/dl (70-99); Magnesium 1.6 mg/dl (1.8-2.4); Potassium 4.3 mmol/L (3.5-5.1); Sodium 137 mmol/L (136-145)
[2021-03-10 13:35] LABS: Hematocrit (blood only) 42.3 % (42-52); Hemoglobin 14.6 g/dL (14.0-18.0); Mean Corpuscular Hemoglobin 28.4 pg (25-34); Mean Corpuscular Hgb Conc 34.5 g/dL (32-36); Mean Corpuscular Volume 82.3 fL (80-100); Mean Platelet Volume 11.2 fL (7.4-10.4); Platelet Count 82 K/uL (130-400); RDW Coefficient of Variation 13.2 % (11.5-14.5); Red Blood Count 5.14 M/uL (4.7-6.1); White Blood Count 6.14 K/uL (4.8-10.8)
[2021-03-10 13:38] LABS: Albumin Globulin Ratio 0.9 (0.9-2); Alkaline Phosphatase 81 U/L (45-117); Bilirubin,Total 1.2 mg/dl (0.2-1); Globulin 3.8 gm/dl (2.5-4.0); Total Protein 7.2 gm/dl (6.4-8.2); Troponin I < 0.015 ng/ml (0-0.045)
[2021-03-10] MEDS ORDERED: SODIUM CHLORIDE 0.9% 1000ML 1,000 ML IV ONE (13:43)
[2021-03-10] MEDS ORDERED: MAGNESIUM SULFATE / D5W 1 GM/100 ML BAG IV STA (13:43)
[2021-03-10 13:46] LABS: Basophils # (auto) 0.03 K/uL (0-0.2); Basophils % (auto) 0.5 %; Eosinophils # (auto) 0.03 K/uL (0-0.5); Eosinophils % (auto) 0.5 %; Immature Granulocytes # (auto) 0.01 K/uL (0.00-0.02); Immature Granulocytes % (auto) 0.2 %; Lymphocytes # (auto) 1.23 K/uL (1.2-3.4); Monocytes # (auto) 0.37 K/uL (0.11-0.59); Neutrophils # (auto) 4.47 K/uL (1.4-6.5); Neutrophils % (auto) 72.8 %
[2021-03-10 13:47] LABS: Platelet Estimate Decreased (Normal)
[2021-03-10 13:49] LABS: Anaplasmosis Smear(Rpt to DOH) Pos for Anaplasma
[2021-03-10 13:58] LABS: Procalcitonin 0.15 ng/ml (0-0.5)
[2021-03-10 14:05] LABS: Appearance Urine Clear (Clear); Bacteria Urine Automated Negative (Negative); Bilirubin Urine Negative (Negative); Blood Urine Negative (Negative); Color Urine Dark Yellow; Glucose Urine UA Negative (Negative); Ketones Urine Negative (Negative); Leukocyte Esterase Urine Negative (Negative); Nitrite Urine Negative (Negative); Protein Urine Trace (Negative); RBC Urine Automated 0-4 /hpf (0-4); Specific Gravity Urine 1.024 (1.000-1.030); Urobilinogen Urine Negative (Negative); pH Urine 5.5 (4.5-7.5)
[2021-03-10 14:06] LABS: Lyme Ab IgG w/WB Rflx Negative (Negative)
[2021-03-10 14:10] LABS: Lyme Ab IgM w/WB Rflx Equivocal (Negative)
[2021-03-10] MEDS ORDERED: OPTIRAY 320 125ml IV ONE (14:37)
--- NOTE | 2021-03-10 14:47 | CT Scan Report ---
HEAD CT NONCONTRAST CT DOSE: 1938.58 mGycm HISTORY: right sided headache TECHNIQUE: Multiaxial CT images of the head were performed without the use of intravenous contrast. A utomated exposure control was utilized for this study. A dose lowering technique was utilized adheri ng to the principles of ALARA. Comparison: Head CT 08/15/2019. Findings: The paranasal sinuses and mastoid air cells are clear. The calvarium and skull base are int act. There is no mass, hematoma, midline shift, acute infarct. White matter hypodensity is nonspecifi c but suggestive of microvascular ischemic change. The ventricles and sulci demonstrate mild age-rela cathy involutional changes. Stable partially calcified scalp nodules likely representing sebaceous cyst . Impression: No significant change compared to the prior study. No acute intracranial abnormality. ACT 112: Negative or not required by law. Electronically signed by: Javed Steele M.D. 03/10/2021 2:46 PM
[2021-03-10] MEDS: DOXYCYCLINE HYCLATE 100 MG in DEXTROSE 5% 100 ML IV SCH (14:56)
--- NOTE | 2021-03-10 15:05 | CT Scan Report ---
CT OF THE ABDOMEN AND PELVIS WITH CONTRAST CLINICAL HISTORY: Fever. Abdominal pain. COMPARISON STUDY: None. TECHNIQUE: Following IV administration of 119 mL of Optiray, axial images of the abdomen and pelvis w ere obtained from the lung bases to the proximal femurs. Images were reviewed in the axial, sagittal, and coronal planes. IV contrast was administered without complication. Automated exposure control w as utilized for the study. A dose lowering technique was utilized adhering to the principles of GAIL Cole. FINDINGS: No pneumatosis, free air or portal venous gas is present. Numerous water attenuation hepati c lesions measure up to 5.2 cm. These represent cysts. There are numerous subcentimeter lesions are t oo small to characterize but also likely reflect cysts. There are multiple water attenuation bilatera l renal lesions consistent with cysts as well as numerous subcentimeter lesions which are too small t o characterize. There is mild to moderate splenomegaly. The adrenal glands and pancreas are unremarka ble. Is no peripancreatic or pericholecystic infiltration. There is no biliary or pancreatic ductal d ilatation. There is no hydronephrosis. The prostate is moderately enlarged. Colonic diverticulosis is noted without evidence for acute diverticulitis. There is no lymphadenopathy. There is no ascites. S mall fat-containing right inguinal hernia is present. No acute fracture or suspicious lesion is ident ified within the visualized skeletal structures. IMPRESSION: 1. No acute process within the abdomen or pelvis. 2. Mild to moderate splenomegaly. 3. Colonic diverticulosis without evidence for acute diverticulitis. 4. Numerous hepatic and renal cysts. ACT 112: Negative or not required by law. Electronically signed by: Karl Nicolas M.D. 03/10/2021 3:03 PM
[2021-03-10] MEDS ORDERED: KETOROLAC TROMETHAMINE 15 MG/ML VIAL IV STA (15:13)
--- NOTE | 2021-03-10 16:50 | History & Physical Report ---
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 Platelets and LFTs also consistent with this diagnosis. Lyme IgM also equivocal with Western Blot pending. - Doxycycline 100 mg IV BID started in the ED -> Continue - Follow blood cultures (2) Atrial fibrillation with rapid ventricular response: Plan: In afib with rates up to the 180s on admission. Spontaneously converted after IV fluids and magnesium. TSH normal. - Discussed with cardiology; no need for present consult - No need for anticoagulation given short duration. Discuss with patient. Can either use [employer] Watch or other device to monitor going forward, or could consider 30-d event monitor on discharge. - Echo ordered - Can consider low-dose beta-nicola on discharge to prevent RVR if afib recurs. (3) Diabetes type 2, controlled: Plan: Last A1c was 6.5% in 04/2020. - Hold metformin - Sliding scale insulin - Repeat A1c (4) Hypertension, uncontrolled: Plan: BP was actually mildly low in the ED (90/70) while in afib. Presently back to 135/80. - Continue home lisinopril (5) DVT prophylaxis: Plan: Lovenox 40 mg SQ daily Code: Full code; discussed with patient and History of Present Illness Chief Complaint: Headache, anaplasmosis Primary Care Provider: JORI Martinez 71yo M w/ hx of HTN, HLD, and DM who presents with anaplasmosis and afib with rapid heart rate. The patient started feeling unwell last Tuesday. Initially, he had polyuria which he reported as having to urinate every hour overnight. He did not have any burning or dysuria at the time. Over the next few days, he started having headache as well as fevers/chills. He had some old Keflex which he started taking which did not relieve his symptoms. He went to urgent care and was found to have a normal UA and was diagnosed with a viral infection and sent home. He was also seen by his PCP who recommended coming to the ER if he felt worse, which he did. In the ER, he was found to be in afib with rapid atrial fibrillation up to the 170 - 180 bpm range. BP was softer at 90/70. He was given fluids and magnesium, and his BP returned to normal and his rhythm converted to sinus rhythm on its own. He denies any palpitations, chest pain, or other symptoms. Allergies Allergy/AdvReac Type Severity Reaction Status Date / Time No Known Drug Allergies Allergy Verified 03/10/21 13:31 Home Medications Medication Instructions Recorded Confirmed Type atorvastatin 20 mg tablet (Lipitor) 20 mg PO QAM 03/10/21 03/10/21 History celecoxib 200 mg capsule (Celebrex) 200 mg PO QAM 03/10/21 03/10/21 History lisinopril 40 mg tablet (Zestril) 40 mg PO QAM 03/10/21 03/10/21 History metformin 500 mg tablet 500 mg PO QAM 03/10/21 03/10/21 History Past Med/Surg History Medical History (Updated 03/10/21 @ 16:41 by Kaz Arroyo MD) Diabetes type 2, controlled Diagnosed 08/16/2019 Hypertension Hypertension, uncontrolled Memory loss 08/16/19 Stroke-like symptom 08/16/19 TGA (transient global amnesia) 08/16/19 Surgical History No pertinent past surgical history S/P cataract surgery bilateral with lens implant Family History Father Hypertension Denies family history of Ovarian cancer Prostate cancer Myocardial infarction Breast cancer Colorectal cancer Social History Smoking Status: Former smoker Tobacco Type: Cigarettes Age Started Using Tobacco: 19; Age Quit Using Tobacco: 35; packs per day: 1; Second Hand Exposure: No; Hx Alcohol Use: No Hx Substance Use: No Preferred Language: Austrian Communication Ability: Effective Visual Impairment: No Limitations Hearing Ability: Hard of Hearing State Pilot Required: No Beliefs That Will Affect Care: None marital status: Current Living Situation: Spouse current occupational status: retired Feels Safe at Home: Yes caffeine: Yes during the past year weight has: remained stable Dental Care, Regularly: Yes Physical Activity Frequency: Daily Seatbelt Use: always Sunscreen Use: No Assistive Devices: None Review of Systems Review of Systems: All systems reviewed & are unremarkable except as noted in HPI & below Physical Exam Constitutional: WD/WN, vitals as above Eyes: EOM intact bilaterally; no conjunctival abnormality ENMT: external ear and nose normal, oropharynx normal Neck: trachea midline, no thyromegaly normal visual inspection Respiratory: normal respiratory effort, lungs clear to auscultation no respiratory distress Cardiovascular: RRR, no murmur, no edema Gastrointestinal (Abdomen): Inspection/Auscultation: abdomen normal to inspection; abdomen not distended Musculoskeletal: no cyanosis or clubbing, extremities motor strength 5/5 Skin: no rashes, warm and dry Neurologic: moves all extremities and awake Psychiatric: Orientation: alert, oriented to person and cooperative Results & Data Results & Data ([facility]) Vital Signs (Past 12 Hours) Vital Signs Temp Pulse Pulse Resp BP BP Pulse Ox 03/10/21 15:30 90 20 136/78 96 03/10/21 15:00 102 H 20 117/78 94 03/10/21 14:45 91 H 20 120/83 96 03/10/21 14:15 91 H 20 121/71 96 03/10/21 14:00 37.8 C H 180 H 20 86/62 L 97 03/10/21 13:45 176 H 20 95/73 L 95 03/10/21 13:30 106 H 16 118/76 96 03/10/21 13:15 159 H 22 90/71 L 97 03/10/21 13:10 102 H 22 132/79 97 03/10/21 12:55 180 H 22 97 03/10/21 12:40 175 H 175 H 22 132/79 98 03/10/21 12:14 37.8 C H 190 H 24 123/76 97 Code Status & VTE Plan VTE Prophylaxis Plan VTE Prophylaxis will be ordered: Yes PG Care Time/CCT Total # of Minutes Spent Total Time Spent with Patient: Total time spent is greater than 50% in coordination of care (as documented) at patient's floor/unit and/or counseling patient: Coding Level of Care Code INT OBSERVATION CARE 70M LVL 3 Diagnoses Anaplasmosis A77.49 Atrial fibrillation with rapid ventricular response I48.91 Diabetes type 2, controlled E11.9 Hypertension, uncontrolled I10 DVT prophylaxis Z29.9
--- NOTE | 2021-03-10 19:31 | Electrocardiogram Report ---
Test Reason : Blood Pressure : / mmHG Vent. Rate : 162 BPM Atrial Rate : 312 BPM P-R Int : 000 ms QRS Dur : 072 ms QT Int : 252 ms P-R-T Axes : 000 088 012 degrees QTc Int : 413 ms Atrial fibrillation with rapid ventricular response with premature ventricular or aberrantly conducte d complexes Abnormal ECG When compared with ECG of 15-AUG-2019 22:45, Atrial fibrillation has replaced Sinus rhythm Vent. rate has increased BY 82 BPM Confirmed by Av Johnson ([id number]) on 03/10/2021 7:30:38 PM Referred By: Constantine Augustine Confirmed By:Av Johnson
--- NOTE | 2021-03-10 19:36 | Electrocardiogram Report ---
Test Reason : Blood Pressure : / mmHG Vent. Rate : 092 BPM Atrial Rate : 092 BPM P-R Int : 144 ms QRS Dur : 070 ms QT Int : 344 ms P-R-T Axes : 038 080 056 degrees QTc Int : 425 ms Normal sinus rhythm Normal ECG When compared with ECG of 10-MAR-2021 12:28, Sinus rhythm has replaced Atrial fibrillation Vent. rate has decreased BY 70 BPM Confirmed by Av Johnson ([id number]) on 03/10/2021 7:36:43 PM Referred By: Constantine Augustine Confirmed By:Av Johnson
[2021-03-10] MEDS ORDERED: ONDANSETRON INJ 2 MG/ML 2 ML VIAL IV PRN (21:14)
[2021-03-10] MEDS ORDERED: GLUCOSE 40% GEL 15 GM TUBE PO PRN (21:14)
[2021-03-10] MEDS ORDERED: GLUCOSE 10 TABS/TUBE PO PRN (21:14)
[2021-03-10] MEDS ORDERED: ACETAMINOPHEN 325 MG TAB PO PRN (21:14)
[2021-03-10] MEDS ORDERED: GLUCAGON FOR INJ 1 MG VIAL SQ PRN (21:14)
[2021-03-10] MEDS ORDERED: CARBOHYDRATES FOR HYPOGLYCEMIA PO PRN (21:14)
[2021-03-10] MEDS ORDERED: DEXTROSE 50% 50 ML SYRINGE IV PRN (21:14)
[2021-03-10] MEDS: INSULIN ASPART 100 UNITS/ML 3 ML PEN SC SCH (22:55)
[2021-03-11] MEDS ORDERED: METOPROLOL TARTRATE 1 MG/ML VIAL IV PRN ×2 (00:53→01:21)
[2021-03-11] MEDS ORDERED: METOPROLOL TARTRATE 1 MG/ML VIAL IV ONE (01:15)
[2021-03-11] MEDS: DOXYCYCLINE HYCLATE 100 MG in DEXTROSE 5% 100 ML IV SCH ×2 (03:16→16:15)
[2021-03-11 06:52] LABS: Hematocrit (blood only) 37.4 % (42-52); Hemoglobin 12.7 g/dL (14.0-18.0); Mean Corpuscular Hemoglobin 28.1 pg (25-34); Mean Corpuscular Volume 82.7 fL (80-100); Mean Platelet Volume 11.1 fL (7.4-10.4); Platelet Count 98 K/uL (130-400); RDW Coefficient of Variation 13.3 % (11.5-14.5); RDW Standard Deviation 40.3 fL (36.4-46.3); Red Blood Count 4.52 M/uL (4.7-6.1); White Blood Count 7.57 K/uL (4.8-10.8)
[2021-03-11 07:34] LABS: Estimated Average Glucose 160 mg/dl; Hemoglobin A1C 7.2 % (4.5-5.6)
[2021-03-11 07:38] LABS: Albumin Level 2.7 gm/dl (3.4-5.0); Calcium 8.3 mg/dl (8.5-10.1); Creatinine Clr Calc Pharmacy 109.7 ml/min; Est GFR (African American) 95.5 ml/min; Est GFR (Non-African American) 82.4 ml/min; Magnesium 1.9 mg/dl (1.8-2.4)
[2021-03-11 07:42] LABS: Albumin Globulin Ratio 0.8 (0.9-2); Bilirubin,Total 0.9 mg/dl (0.2-1); Globulin 3.4 gm/dl (2.5-4.0); Total Protein 6.1 gm/dl (6.4-8.2)
[2021-03-11] MEDS: ATORVASTATIN 20 MG TAB PO SCH (08:23)
[2021-03-11] MEDS: ENOXAPARIN INJ 40 MG/0.4 ML SYR SQ SCH (08:23)
[2021-03-11] MEDS: INSULIN ASPART 100 UNITS/ML 3 ML PEN SC SCH ×4 (08:35→22:14)
[2021-03-11] MEDS ORDERED: lisinopril 40 MG TAB PO SCH (09:00)
[2021-03-11] MEDS ORDERED: CeleBREX 200 MG CAP PO SCH (09:00)
[2021-03-11] MEDS: MAGNESIUM SULFATE / D5W 1 GM/100 ML BAG IV SCH ×2 (09:13→11:21)
[2021-03-11] MEDS: METOPROLOL TARTRATE 25 MG TAB PO SCH ×2 (16:14→20:22)
--- NOTE | 2021-03-11 17:04 | XCELERA ---
[id number] \\[id number]
--- NOTE | 2021-03-11 19:33 | Hospitalist Progress Note ---
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 Platelets and abnl LFTs also consistent with this diagnosis. Lyme IgM also equivocal with Western Blot pending. Doxycycline 100 mg IV BID started in the ED - can convert to PO doxy. Plan 14 days in total of Rx. He is already improving nicely. Expect platelets and LFTs to resolve next 2-[address] is 2nd to anaplasmosis. (2) Atrial fibrillation with rapid ventricular response: Plan: Rates up to the 180s at ER presentation. Spontaneously converted, then had 2 additional episodes on the tele unit. CHADsVASc score is 3 (age, T2DM, HTN). TSH wnl. Echo with preserved EF and normal valve function. Plan - Start metoprolol. Strongly consider anticoagulation - will investigate kusum cost tomorrow. Cont tele. Would obtain 30-day event monitor to assess a.fib burden. I do suspect he is going in/out of a.fib at home as well - really has no symptom s from this. (3) Hypertension, uncontrolled: Plan: Hold lisinopril while starting & titrating the BB. (4) DVT prophylaxis: Plan: Lovenox 40 mg SQ daily (5) Thrombocytopenia: Plan: 2nd anaplasmosis cbc in am for stability will resolve w/ doxy (6) Diabetes type 2, controlled: Plan: a1c just over 7% hold metformin recheck CR am if stable can resume metformin at d/c (7) Abnormal LFTs: Plan: 2nd anaplasmosis trend Plan: convert to full admission due to recurrent, rapid PAF watch overnight hopefully home tomorrow Admission and Anticipated Discharge Date Admission Date: March 10, 2021 Subjective patient feeling much better today many of the presenting flu-like symptoms have resolved tele since admission - 3 episodes of PAF - first was at time of ER presentation, then again last night just before midnight lasting about an hour, and then again this am from 8am to noon. all episodes self-resolved. he did not have palpitations or other CV symptoms when he was in PAF. he doesn't recall any prior episode of PAF. He is not on blood thinners. eating well today. better energy. hoping for d/c home. Review of Systems Review of Systems: gen - denies myalgia or chills cardio - no chest pain pulm - no dyspnea gastro - no pain, no nausea, no vomiting Physical Exam Physical Exam: gen - morbidly obese, NAD mouth - MMM neck - no JVD heart - RRR, s1 s2, no murmur lungs - CTA b/l abd - soft NT ND BS+ ext - no edema psych - a/o x 3 Results & Data Results & Data ([facility]) Vital Signs (Past 12 Hours) Vital Signs Temp Pulse Pulse Pulse Resp BP BP 03/11/21 15:35 36.7 C 75 18 136/83 03/11/21 14:23 78 03/11/21 11:20 36.4 C L 107 H 18 124/79 03/11/21 10:41 96 H 03/11/21 08:44 137 H 138/89 Pulse Ox 03/11/21 15:35 95 03/11/21 14:23 03/11/21 11:20 96 03/11/21 10:41 03/11/21 08:44 Laboratory Results Laboratory Results - last 24 hr 03/10/21 03/11/21 03/11/21 21:43 06:17 06:17 WBC 7.57 RBC 4.52 L Hgb 12.7 L Hct 37.4 L MCV 82.7 MCH 28.1 MCHC 34.0 RDW Std Deviation 40.3 RDW Coeff of Reggie 13.3 Plt Count 98 L MPV 11.1 H Sodium 138 Potassium 4.0 Chloride 108 H Carbon Dioxide 27 Anion Gap 3.0 BUN 18 Creatinine 0.94 Est Cr Clr Drug Dosing 109.7 Est GFR ( Amer) 95.5 Est GFR (Non-Af Amer) 82.4 BUN/Creatinine Ratio 19.0 Glucose 126 H POC Glucose 111 H Estimat Average Glucose Hemoglobin A1c Calcium 8.3 L Magnesium 1.9 Total Bilirubin 0.9 AST 48 H ALT 98 H Alkaline Phosphatase 61 Total Protein 6.1 L Albumin 2.7 L Globulin 3.4 Albumin/Globulin Ratio 0.8 L Triglycerides 106 Cholesterol 80 LDL Cholesterol, Calc 43 VLDL Cholesterol, Calc 21 HDL Cholesterol 16 Cholesterol/HDL Ratio 5 03/11/21 03/11/21 03/11/21 06:17 07:30 11:33 WBC RBC Hgb Hct MCV MCH MCHC RDW Std Deviation RDW Coeff of Reggie Plt Count MPV Sodium Potassium Chloride Carbon Dioxide Anion Gap BUN Creatinine Est Cr Clr Drug Dosing Est GFR ( Amer) Est GFR (Non-Af Amer) BUN/Creatinine Ratio Glucose POC Glucose 124 H 125 H Estimat Average Glucose 160 Hemoglobin A1c 7.2 H Calcium Magnesium Total Bilirubin AST ALT Alkaline Phosphatase Total Protein Albumin Globulin Albumin/Globulin Ratio Triglycerides Cholesterol LDL Cholesterol, Calc VLDL Cholesterol, Calc HDL Cholesterol Cholesterol/HDL Ratio 03/11/21 16:26 WBC RBC Hgb Hct MCV MCH MCHC RDW Std Deviation RDW Coeff of Reggie Plt Count MPV Sodium Potassium Chloride Carbon Dioxide Anion Gap BUN Creatinine Est Cr Clr Drug Dosing Est GFR ( Amer) Est GFR (Non-Af Amer) BUN/Creatinine Ratio Glucose POC Glucose 115 H Estimat Average Glucose Hemoglobin A1c Calcium Magnesium Total Bilirubin AST ALT Alkaline Phosphatase Total Protein Albumin Globulin Albumin/Globulin Ratio Triglycerides Cholesterol LDL Cholesterol, Calc VLDL Cholesterol, Calc HDL Cholesterol Cholesterol/HDL Ratio PG Care Time/CCT Total # of Minutes Spent Total Time Spent with Patient: Total time spent is greater than 50% in coordination of care (as documented) at patient's floor/unit and/or counseling patient: Coding Level of Care Code 86727 Subseq Hosp Care Lvl 3 Diagnoses Anaplasmosis A77.49 Atrial fibrillation with rapid ventricular response I48.91 Hypertension, uncontrolled I10 DVT prophylaxis Z29.9 Thrombocytopenia D69.6 Diabetes type 2, controlled E11.9 Abnormal LFTs R94.5
[2021-03-12] MEDS: ENOXAPARIN INJ 40 MG/0.4 ML SYR SQ SCH (08:22)
[2021-03-12] MEDS: ATORVASTATIN 20 MG TAB PO SCH (08:22)
[2021-03-12] MEDS: METOPROLOL TARTRATE 25 MG TAB PO SCH (08:22)
[2021-03-12] MEDS: INSULIN ASPART 100 UNITS/ML 3 ML PEN SC SCH ×2 (08:23→12:12)
[2021-03-12 08:27] LABS: Hematocrit (blood only) 40.2 % (42-52); Hemoglobin 13.7 g/dL (14.0-18.0); Mean Corpuscular Hgb Conc 34.1 g/dL (32-36); Mean Platelet Volume 10.9 fL (7.4-10.4); Platelet Count 148 K/uL (130-400); RDW Coefficient of Variation 13.3 % (11.5-14.5); RDW Standard Deviation 40.5 fL (36.4-46.3); White Blood Count 4.63 K/uL (4.8-10.8)
[2021-03-12] MEDS ORDERED: DOXYCYCLINE HYCLATE 100 MG CAP PO SCH (09:00)
[2021-03-12 09:08] LABS: BUN Creatinine Ratio 20.7 (10-20); Calcium 8.5 mg/dl (8.5-10.1); Creatinine Clr Calc Pharmacy 135.7 ml/min; Est GFR (African American) 107.9 ml/min; Est GFR (Non-African American) 93.1 ml/min; Potassium 4.2 mmol/L (3.5-5.1)
[2021-03-13 09:26] LABS: 18KDIGG Band NON-REACTIVE; 23KDIGG Band NON-REACTIVE; 23KDIGM Band NON-REACTIVE; 28KDIGG Band NON-REACTIVE; 30KDIGG Band NON-REACTIVE; 39KDIGG Band NON-REACTIVE; 39KDIGM Band NON-REACTIVE; 41KDIGG Band REACTIVE; 41KDIGM Band NON-REACTIVE; 45KDIGG Band NON-REACTIVE; 58KDIGG Band NON-REACTIVE; 66KDIGG Band NON-REACTIVE; 93KDIGG Band REACTIVE; Lyme Antibodies, WB IgG NEGATIVE (NEGATIVE); Lyme Antibodies, WB IgM NEGATIVE (NEGATIVE)
--- NOTE | 2021-03-13 21:12 | Discharge Summary ---
Date of Service March 12, 2021 Admission HPI Per Admitting Provider 71yo M w/ hx of HTN, HLD, and DM who presents with anaplasmosis and afib with rapid heart rate. The patient started feeling unwell last Tuesday. Initially, he had polyuria which he reported as having to urinate every hour overnight. He did not have any burning or dysuria at the time. Over the next few days, he started having headache as well as fevers/chills. He had some old Keflex which he started taking which did not relieve his symptoms. He went to urgent care and was found to have a normal UA and was diagnosed with a viral infection and sent home. He was also seen by his PCP who recommended coming to the ER if he felt worse, which he did. In the ER, he was found to be in afib with rapid atrial fibrillation up to the 170 - 180 bpm range. BP was softer at 90/70. He was given fluids and magnesium, and his BP returned to normal and his rhythm converted to sinus rhythm on its own. He denies any palpitations, chest pain, or other symptoms. Principal Diagnosis Anaplasmosis Discharge Exam gen - morbidly obese, NAD mouth - MMM neck - no JVD heart - RRR, s1 s2, no murmur lungs - CTA b/l abd - soft NT ND BS+ ext - no edema psych - a/o x 3 Discharge Data Allergies Allergy/AdvReac Type Severity Reaction Status Date / Time No Known Drug Allergies Allergy Verified 03/10/21 13:31 Consultations 03/10/21 14:20 ED Decision to Admit Stat Ordered Studies 03/10/21 12:48 CT abd pelvis IV con only Stat CT head/brain wo con Stat Hospital Course (1) Anaplasmosis: Peripheral smear from 03/10 positive for anaplasmosis. Platelets and abnl LFTs also consistent with this diagnosis. Lyme IgM also equivocal with Western Blot pending. Doxycycline 100 mg IV BID started in the ED - can convert to PO doxy. Plan 14 days in total of Rx. He is already improving nicely. Ok to discharge on doxycycline. Expect platelets and LFTs to resolve next 2-[address] is 2nd to anaplasmosis. (2) Atrial fibrillation with rapid ventricular response: Rates up to the 180s at ER presentation. Spontaneously converted, then had 2 additional episodes on the tele unit. CHADsVASc score is 3 (age, T2DM, HTN). TSH wnl. Echo with preserved EF and normal valve function. Plan - Started metoprolol. Strongly consider anticoagulation - place on eliquis, order 30 day coupon. will defer cost with PCP Would recommend obtaining 30-day event monitor to assess a.fib burden. will defer this to PCP. I do suspect he is going in/out of a.fib at home as well - really has no symptoms from this. (3) Hypertension, uncontrolled: Hold lisinopril while starting & titrating the BB. (4) DVT prophylaxis: Lovenox 40 mg SQ daily (5) Thrombocytopenia: 2nd anaplasmosis cbc in am for stability will resolve w/ doxy (6) Diabetes type 2, controlled: a1c just over 7% hold metformin recheck CR am if stable can resume metformin at d/c (7) Abnormal LFTs: 2nd anaplasmosis trend convert to full admission due to recurrent, rapid PAF watch overnight hopefully home tomorrow Total Time Total Time Spent Total Time Spent (In Minutes): 32 Discharge Plan Discharge Items Patient Disposition: Home - Self-Care Reason For Visit: ANAPLASMOSIS, AFIB WITH RVR Discharge Diagnosis: anaplasmosis, afib wtih RVR Condition on Discharge: Fair Activity: Resume your previous activity Non-emergency contact: Primary Care Provider Call non-emergency contact if: you have any medication questions Follow-up/Referrals: Constantine Augustine CRNP [Primary Care Provider] - 03/18/21 8:20 am Diet: Carb Consistent or DM2 Addtl Attending Provider Instructions: YOU WILL BE DISCHARGED ON DOXYCYCLINE for anaplasmosis (12 more days) You will be discharged on Eliquis and metorpolol for a. fib and anticagulation. will recommend followup with PCP for possible holter monitor. Pending Studies at Discharge: No Stand-Alone Forms: My [employer], Smoking Cessation Medications and DC Order Prescriptions: New doxycycline hyclate 100 mg Capsule 100 mg PO BID 12 Days Qty: 24 RF: 0 metoprolol tartrate 25 mg Tablet 25 mg PO BID Qty: 60 RF: 0 Eliquis 5 mg tablet 5 mg PO BID Qty: 60 RF: 0 acetaminophen 325 mg Tablet 650 mg PO Q4H PRN (Reason: pain) Qty: 30 RF: 0 Continued metformin 500 mg tablet 500 mg PO QAM RF: 0 atorvastatin [Lipitor] 20 mg tablet 20 mg PO QAM RF: 0 Discontinued celecoxib [Celebrex] 200 mg capsule 200 mg PO QAM RF: 0 lisinopril [Zestril] 40 mg tablet 40 mg PO QAM RF: 0 No Action Xarelto 20 mg tablet 20 mg PO DAILY Qty: 90 RF: 1 Discharge Orders: Discharge Order (Routine); Ordered 03/12/21 Ordered By: Renard Ash/Other Patient Handouts: A1C, High Blood Sugar (Hyperglycemia), Hypoglycemia (Low Blood Sugar), Managing Type 2 Diabetes, 5 Steps for Eating Healthier Admission Data Admit Date/Time: 03/11/21 19:30 Attending Provider: Renard Lorenzo Admit Provider: Kaz Arroyo Primary Care Provider: Constantine Augustine Other Providers: Kaz Arroyo Other Interventions: Discharge Summary Assessment (RN) Last Done: 03/12/21 17:12 Coding Level of Care Code D/C DAY MANAGEMENT >30 MINS Diagnoses Anaplasmosis A77.49 Atrial fibrillation with rapid ventricular response I48.91 Hypertension, uncontrolled I10 DVT prophylaxis Z29.9 Thrombocytopenia D69.6 Diabetes type 2, controlled E11.9 Abnormal LFTs R94.5 Time Spent (min) 32
== END 2021-03-12 18:01 | disposition home or self-care (01) | DRG 869 ==
LOC: ED 12:11 → EDINP 12:11 → SUATTDRO 16:36 → EDINP 21:02 → 2N 21:39 → SUATTDRO 03-11 19:30